=== PATIENT | female | born 1960 | race Caucasian/White ===

== ENCOUNTER 2016-03-04 17:27 | Emergency (ER) | payer OTHER ==
--- NOTE | 2016-03-04 18:30 | ED ---
Chest Pain HPI - General Chief Complaint: Chest Pain Stated Complaint: CHEST PAIN Time Seen by Provider: 03/04/16 17:49 Source: patient Mode of arrival: wheelchair Limitations: no limitations - History of Present Illness Initial Comments: Patient is a 55-year-old female with history of angina on nitro and Imdur presenting with chest pain. Patient states around 5:00 she had substernal nonradiating chest pain. Patient states it lasted for a few seconds. Patient does not relate to food or exertion. Patient concerned about anxiety but was not in any arguments or stressful environment. 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 Patient denies history of diabetes, hypertension, hyperlipidemia. She does state her brother has a history of early heart disease. Patient denies tobacco abuse. Patient had recent workup at [facility] for vaginal issues for which she was given estrogen supplements. Patient denies starting these. Patient denies recent travel or trauma or surgery. Patient denies history of DVT/PE. Patient denies known cancer. Patient denies hemoptysis. - Related Data Home Medications Medication Instructions Recorded Confirmed Aspirin EC [Ecotrin Low Dose] 81 mg PO DAILY 03/04/16 03/04/16 Isosorbide Mononitrate ER [Imdur] 15 mg PO DAILY 03/04/16 03/04/16 Levothyroxine Sodium [Synthroid] 50 mcg PO DAILY 03/04/16 03/04/16 Allergies Allergy/AdvReac Type Severity Reaction Status Date / Time clarithromycin [From Biaxin] AdvReac Nausea Verified 03/04/16 18:01 Review of Systems ROS Statement: Those systems with pertinent positive or pertinent negative responses have been documented in the HPI. Constitutional: No fever and no chills. HENT: No congestion, no rhinorrhea and no sore throat. Eyes: No discharge and no redness. Respiratory: No cough and no shortness of breath. Cardiovascular: +chest pain and no palpitations. Gastrointestinal: No nausea, no vomiting, no abdominal pain and no diarrhea. Genitourinary: No dysuria and no hematuria. Musculoskeletal: No back pain and no arthralgias. Skin: No pallor and no rash. Neurological: No dizziness and No headaches. ROS Other: All systems not noted in ROS Statement are negative. EKG Findings - EKG Comments: EKG Findings:: EKG done at 1839 shows a ventricular rate of 82 bpm, normal sinus rhythm. TX interval 132 ms, QRS duration 84 ms, QTC [address] or T- wave changes. Past Medical History Additional Past Medical History / Comment(s): Changes on stress test Past Surgical History: No Surgical Hx Reported Past Psychological History: No Psychological Hx Reported Smoking Status: Former smoker Past Alcohol Use History: None Reported Past Drug Use History: None Reported General Exam - General Exam Comments Initial Comments: Constitutional: Patient appears well-developed and well-nourished. No distress. Head: Normocephalic and atraumatic. Eyes: Conjunctivae and EOM are normal. Right eye exhibits no discharge. Left eye exhibits no discharge. No scleral icterus. Neck: Normal range of motion. Neck supple. Cardiovascular: Normal rate and regular rhythm. No murmur heard. Pulmonary/Chest: Effort normal and breath sounds normal. No respiratory distress. No wheezes. Abdominal: Soft. No distension. There is no tenderness. There is no rebound and no guarding. Musculoskeletal: Normal range of motion. No edema or tenderness. Neurological: Patient alert and oriented to person, place, and time. Skin: Skin is warm and dry. Not diaphoretic. Nursing notes and vitals reviewed. Limitations: no limitations Course Vital Signs 03/04/16 03/04/16 03/04/16 17:42 19:19 20:00 Temperature 96.9 F L 97.3 F L 97.5 F L Pulse Rate 89 76 68 Respiratory 18 20 20 Rate Blood Pressure 164/85 128/78 114/71 O2 Sat by Pulse 100 98 99 Oximetry - Reevaluation(s) Reevaluation #1: 03/04/16 22:24 Patient feeling better. No further chest pain. Patient has a vessel engineer she can follow up with tomorrow. Chest [facility] Patient is a 55-year-old female past medical history of angina presenting with chest pain. Chest pain was short-lived. Nonradiating chest pain. Patient with unremarkable CBC, d-dimer, troponin, BMP. UA unremarkable. Chest x-ray unremarkable. EKG unremarkable. There was an incidental 1 cm opacity in the right mid lung. This was disclosed the patient for follow-up. Heart score of 2. Prior to discharge, patient was resting comfortably in bed. Course of stay improved. Denies pain. Discussed physical exam and diagnostic tests with patient. Questions answered and patient is agreeable to discharge with close follow up with Primary Care Physician. Instructed to return to Emergency Department if symptoms worsen. Disposition Clinical Impression: Chest pain Disposition: HOME SELF-CARE Condition: Good Instructions: Chest Pain (ED) Referrals: Ritika Garcia MD [Primary Care Provider] - 1-2 days Zoltan Coulter MD [STAFF PHYSICIAN] - 1-2 days
[2016-03-04 18:52] LABS: Appearance,Urine Clear (Clear); Bilirubin,Urine Negative (Negative); Glucose,Urine (UA) Negative (Negative); Ketones,Urine Negative (Negative); Leukocyte Esterase,Urine Negative (Negative); Nitrite,Urine Negative (Negative); PH, Urine 6.5 (5.0-8.0); Protein,Urine Negative (Negative); Specific Gravity,Urine 1.001 (1.001-1.035); UA Billing (MACRO vs. MICRO) CHEM; Urobilinogen,Urine <2.0 mg/dL (<2.0)
[2016-03-04 19:20] VITALS: RESP 20
--- NOTE | 2016-03-04 19:42 | XR ---
EXAMINATION TYPE: XR chest 2V DATE OF EXAM: 03/04/2016 7:25 PM COMPARISON: NONE HISTORY: Chart substernal chest pain. No prior studies. TECHNIQUE: Frontal and lateral views of the chest are obtained. FINDINGS: The lungs are predominantly clear and well expanded. The pleural spaces are negative. The cardiac and mediastinal silhouette are negative. Bones and soft tissues are unremarkable. Incidental: However, there is a 1 cm opacity superimposed over the right mid-lower lung zone on the f rontal radiograph. IMPRESSION: 1. NO ACUTE PROCESS. 2. Incidental 1 cm opacity demonstrated over the right midlung. If there are no outside radiographs t o assure stability over time, then would recommend one-month follow-up chest CT characterization.
[2016-03-04 21:20] LABS: Basophils % (A) 1 %; CH 30.2; CHCM 33.5; Eosinophils # (A) 0.1 k/uL (0-0.7); Eosinophils % (A) 2 %; HCT 37.1 % (34.0-46.0); HDW 2.53; HGB 12.4 gm/dL (11.4-16.0); Luc # (Auto) 0.05; Luc % (Auto) 1; Lymphocytes # (A) 1.2 k/uL (1.0-4.8); Lymphocytes % (A) 30 %; MCH 30.3 pg (25.0-35.0); MCHC 33.4 g/dL (31.0-37.0); MCV 90.6 fL (80.0-100.0); Mean Platelet Volume 8.5; Monocytes # (A) 0.3 k/uL (0-1.0); Monocytes % (A) 7 %; Neutrophils # (A) 2.2 k/uL (1.3-7.7); Neutrophils % (A) 58 %; RBC 4.09 m/uL (3.80-5.40); RDW 12.8 % (11.5-15.5); WBC 3.8 k/uL (3.8-10.6); WBC (Perox) 4.08
[2016-03-04 21:26] LABS: Anion Gap 11 mmol/L; Blood Urea Nitrogen 9 mg/dL (7-17); Calcium 9.1 mg/dL (8.4-10.2); Carbon Dioxide 24 mmol/L (22-30); Chloride 106 mmol/L (98-107); Glucose 93 mg/dL (74-99); Non-African American GFR(MDRD) >60 (>60 ml/min/1.73 sqM); Potassium 4.4 mmol/L (3.5-5.1); Sodium 141 mmol/L (137-145)
[2016-03-04 21:37] LABS: INR 0.9 (<1.1); Partial Thromboplastin Time 24.1 sec (22.0-30.0); Prothrombin Time 9.7 sec (9.0-12.0)
[2016-03-04 23:00] VITALS: BP 101/60; PULSE 74; TEMP 97.2
== END 2016-03-04 22:53 | disposition home or self-care (01) ==
LOC: EC 17:27
DX: R07.9 Chest pain, unspecified (principal); Z79.82 Long term (current) use of aspirin; Z79.899 Other long term (current) drug therapy; Z88.1 Allergy status to other antibiotic agents; Z87.891 Personal history of nicotine dependence; I20.9 Angina pectoris, unspecified
CPT/HCPCS: 36415; 71020; 80048; 81003; 83735; 84484; 85025; 85379; 85610; 85730; 93005; 99285

== ENCOUNTER → 2016-06-03 | Outpatient (CLI) | payer OTHER ==
--- NOTE | 2016-06-03 22:56 | CT ---
EXAMINATION TYPE: CT chest w con DATE OF EXAM: 06/03/2016 2:28 PM COMPARISON: NONE HISTORY: Nonspecific abnormal findings of lung field CT DLP: 493 mGycm, Automated exposure control for dose reduction was used. CONTRAST: Performed injected with 100 ml mL of Omnipaque 300. TECHNIQUE: Axial images were obtained at 5 mm thick sections. Reconstructed images are reviewed on [employer] computer in the coronal plane. FINDINGS: Portion of the thyroid visualized is normal. There is a 0.7 cm nodule in the posterior medial right upper lung field. Series 4 image 14. This coul d be a granuloma with a small calcification centrally. There is a 0.6 and 0.8 cm nodule within the pe riphery of the right midlung. Series 4 image 31. These may have tiny adjacent daughter nodules. There is a 0.7 cm nodule within the right middle lobe. Series 4 image 33. 0.4 similar nodules in the perip zeenat of the right middle lobe. Series 4 image 36. There is a 0.6 cm nodule within the posterior media l right lung base. Series 4 image 46. No enlarged mediastinal or hilar adenopathy is evident. The ascending aorta diameter at the level o f the main pulmonary artery is 4.1 cm. The main pulmonary artery diameter at the bifurcation is 2.8 cm. Coronary artery calcification is present Limited CT sections are obtained through the upper abdomen. There is a 2.7 cm hypodensity with slight ly irregular margins within the medial left lobe liver. This is not a typical cyst. Additional workup is recommended. Solid lesion measuring 54 Hounsfield units should be considered. Hemangioma consider ed less likely given lack of sufficient enhancement. IMPRESSIONS: 1. Scattered nodules within the right lung are nonspecific. Granuloma metastatic disease within the d ifferential. 2 suspicious solid-appearing area within the left lobe liver. Additional workup is recom mended. Ultrasound can be performed.
== END | disposition home or self-care (01) ==
LOC: RADCTMAIN 13:29
PROVIDERS: ATTEND Family Medicine
DX: R91.8 Other nonspecific abnormal finding of lung field (principal)
CPT/HCPCS: 71260; Q9967

== ENCOUNTER → 2016-06-22 | Outpatient (CLI) | payer OTHER ==
--- NOTE | 2016-06-22 09:50 | US ---
EXAMINATION TYPE: US abdomen complete DATE OF EXAM: 06/22/2016 8:04 AM COMPARISON: CT chest 06/03/2016 CLINICAL HISTORY: D13.4 Neoplasm of Liver. Left lobe liver lesion noted on recent CT, acid reflux EXAM MEASUREMENTS: Liver Length: 17.0 cm Gallbladder Wall: 0.3 cm CBD: 0.4 cm Spleen: 12.2 cm Right Kidney: 10.1 x 3.6 x 3.7 cm Left Kidney: 10.4 x 5.1 x 4.7 cm Pancreas: Tail portions obscured by overlying bowel content Liver: hyperechoic areas noted, largest within left lobe = 3.4 x 2.6 x 3.4cm Gallbladder: no evidence of stones. There is mild wall thickening. Evidence for sonographic Diamond's sign: no CBD: wnl Spleen: wnl Right Kidney: no evidence of hydronephrosis or mass Left Kidney: no evidence of hydronephrosis or mass Upper IVC: wnl Abd Aorta: visualized portions appear wnl, bifurcation obscured IMPRESSION: 1. Scattered hyperechoic areas within the liver. These appear greater than expected from the CT judson rison. The largest within the left lobe liver measuring approximately 3 cm in size. No neoplasm shoul d be considered. Additional workup with contrast MRI is recommended.
== END | disposition home or self-care (01) ==
LOC: RADUSWWP 07:25
PROVIDERS: ATTEND Family Medicine
DX: R93.2 Abnormal findings on diagnostic imaging of liver and biliary tract (principal); D13.4 Benign neoplasm of liver
CPT/HCPCS: 76700

== ENCOUNTER → 2016-08-07 | Outpatient (CLI) | payer OTHER ==
--- NOTE | 2016-08-08 10:01 | PE ---
EXAMINATION TYPE: PET CT fusion skull to thigh DATE OF EXAM: 08/07/2016 COMPARISON: CT chest 06/03/2016 Prior PET/CT: None HISTORY: Solitary pulmonary nodule TECHNIQUE: Following the intravenous administration of 10.45 mCi of F-18 FDG, whole body images are performed from the skull base to the midthigh. Images are reviewed on the computer in the coronal, a xial, and sagittal planes. Reconstructed rotating images are created on independent workstation and reviewed on the computer. A localization and attenuation correction CT is performed in conjunction with the PET scan. DLP: 399.58 mGycm SCAN: Initial Blood glucose: 101 mg/dL Average Mediastinum SUV: 1.74 Average Liver SUV: 2.56 FINDINGS: NECK: No abnormal uptake. THORAX: There is vague nonspecific uptake within an area of pneumonitis in the right apex. This has a n SUV of 1.35 which can be inflammatory in nature. PET image 79. A right lower lobe nodule has low SPRAGUE V value of 0.86. PET image 97 nodular uptake within the posterior lateral right upper lung field has an SUV value 1.1 and 0.98. PET images 89-90. A suspected calcification in the posterior medial right apex has an SUV value of 0.91. PET image 69. A medial right middle lobe nodule near the ascending tho racic aorta on PET image 81 has an SUV value 1. There is mild increased uptake within the right suprahilar region. This has an SUV value of 2.9, PET image 82. Slightly more inferior subcarinal region uptake is 2.86. This can be within the inflammator y range but is approaching a possible neoplastic process such as metastatic disease. ABDOMEN: No abnormal uptake PELVIS: No abnormal uptake OSSEOUS STRUCTURES: No abnormal uptake LOCALIZATION CT: The ascending thoracic aorta at the level of main pulmonary artery is 4.3 cm patent main pulmonary bifurcation is 2.5 cm. Right lung nodules are again identified on the localization CT. COMPARISON: Nodules appear stable from the May 2016 comparison IMPRESSION: 1. Suspicious uptake within the identified lung nodules not identified. These are at the lower end of detectability, early minimal prostatic disease is not excluded. Findings appear more compatible with inflammatory change. 2. There is some mild increased uptake within nonenlarged right suprahilar lymph nodes. Inflammatory change and early metastatic disease are within the differential. These should be followed with PET/CT .
== END | disposition home or self-care (01) ==
LOC: RADPETMAIN 10:25
PROVIDERS: ATTEND Internal Medicine Critical Care Medicine
DX: R91.8 Other nonspecific abnormal finding of lung field (principal)
CPT/HCPCS: 78815; A9552

== ENCOUNTER → 2017-02-02 | Outpatient (CLI) | payer OTHER ==
--- NOTE | 2017-02-02 14:03 | CT ---
EXAMINATION TYPE: CT chest w con DATE OF EXAM: 02/02/2017 COMPARISON: CT chest June 03, 2016. PET CT August 07, 2016 HISTORY: Follow up study for known lung nodules. CT DLP: 170.6 mGycm. Automated Exposure Control for Dose Reduction was Utilized. TECHNIQUE: CT scan of the thorax is performed following with IV Contrast, patient injected with 100 mL of Omnipaque 300. FINDINGS: LUNGS: There is stable calcified posterior 4 mm right upper lung nodule axial image 15. Posterior lat eral right lower lobe nodules is some calcification and fat density are redemonstrated. More anterior nodule measures 7 x 7 mm on axial image 30. More posterior nodule measures 10 x 8 mm on axial image 31. There are stable or perhaps minimally larger versus prior CT accounting for technical differences . Right middle lobe nodular density measures 7 x 5 mm current study image 34 not significantly change d from prior. A 6 x 2 mm subpleural scarlike opacity right middle lobe on axial image 38 is stable. A 8 x 7 mm nodule with calcification right lung base on axial image 47 and felt stable. No new or left-sided nodularity is identified. No pleural effusion or pneumothorax is seen bilaterall y. No suspicious groundglass opacity or consolidation is present. MEDIASTINUM: There are no greater than 1 cm hilar or mediastinal lymph nodes. Prominent but subcenti meter right hilar lymph nodes near image 31 that show hypermetabolic uptake are stable. No pericardi al effusion is seen. Ascending aorta measures 4.0 cm in diameter unchanged from prior. There is mode rate to severe coronary artery calcific patient redemonstrated which is noted marker for coronary art brett disease. OTHER: There is nonspecific 2.3 cm low dense lesion left hepatic lobe on axial image 50 felt stable. This correlates with hyperechoic area on ultrasound favoring hemangioma. This can be confirmed with [facility] liver protocol CT or MRI if desired. IMPRESSION: Scattered right lung nodules overall stable or perhaps minimally progressed in size. Advi sed continued CT follow-up in 6 months time to reassess.
== END | disposition home or self-care (01) ==
LOC: RADCTMAIN 13:20
PROVIDERS: ATTEND Internal Medicine Critical Care Medicine
DX: R91.8 Other nonspecific abnormal finding of lung field (principal); Z88.1 Allergy status to other antibiotic agents; Z88.8 Allergy status to other drugs, medicaments and biological substances
CPT/HCPCS: 71260; Q9967

== ENCOUNTER 2017-07-02 19:14 | Emergency (ER) | payer BC, OTHER ==
[2017-07-02] MEDS ORDERED: SODIUM CHLORIDE 0.9% 1,000 ML IV STA ×2 (19:38)
[2017-07-02] MEDS ORDERED: LORazepam 2 MG/ML INJ IV STA (19:38)
--- NOTE | 2017-07-02 19:50 | ED ---
Arrhythmia/Palpitations HPI - General Chief Complaint: Arrhythmia/Palpitations Stated Complaint: Light headed Time Seen by Provider: 07/02/17 19:20 Source: patient Mode of arrival: ambulatory Limitations: no limitations - History of Present Illness Initial Comments: This 56-year-old white female presents with a complaint of some palpitations. She states that she was doing a significant amount of physical yardwork today. It was very hot outside as well. She is not used to this degree of physical labor. She did not eat anything throughout the day and had little to drink. Towards the end of the day she apparently started having the palpitations. She denies any chest pain or shortness of breath. She apparently had similar symptoms several years ago and was seen in the emergency department and diagnosed with an anxiety attack. She does not normally take medications for anxiety. She denies any other complaints or modifying factors. The palpitations have resolved at this point in time. - Related Data Home Medications Medication Instructions Recorded Confirmed Aspirin EC [Ecotrin Low Dose] 81 mg PO DAILY 03/04/16 07/02/17 Isosorbide Mononitrate ER [Imdur] 15 mg PO DAILY 03/04/16 07/02/17 Levothyroxine Sodium [Synthroid] 75 mcg PO DAILY 03/04/16 07/02/17 Allergies Allergy/AdvReac Type Severity Reaction Status Date / Time clarithromycin [From Biaxin] AdvReac Nausea Verified 07/02/17 19:19 Review of Systems ROS Statement: Those systems with pertinent positive or pertinent negative responses have been documented in the HPI. ROS Other: All systems not noted in ROS Statement are negative. Past Medical History Past Medical History: Thyroid Disorder Additional Past Medical History / Comment(s): Changes on stress test History of Any Multi-Drug Resistant Organisms: None Reported Past Surgical History: No Surgical Hx Reported Past Psychological History: No Psychological Hx Reported Smoking Status: Former smoker Past Alcohol Use History: None Reported Past Drug Use History: None Reported General Exam - General Exam Comments Initial Comments: GENERAL: The patient is well nourished and well hydrated. VITAL SIGNS: Heart rate, blood pressure, respiratory rate reviewed as recorded in nurse's notes. EYES: Pupils are round and reactive. Extraocular movements are intact. No conjunctival / lid redness or swelling. ENT: No external evidence of injury, swelling, or ecchymosis. Airway is patent. Throat is clear. NECK: Nontender. No swelling or evidence of injury. No subcutaneous emphysema. Trachea is midline. No thyroid mass. HEART: Regular rate and rhythm. Good peripheral pulses. LUNGS/CHEST: Breath sounds clear and equal bilaterally. No rales, rhonchi, or wheezes. No ecchymosis, subcutaneous emphysema, or tenderness. ABDOMEN: Abdomen soft without tenderness. No palpable masses or organomegaly. No peritoneal signs. No abdominal wall swelling or ecchymosis. EXTREMITIES: No extremity tenderness. Normal muscle tone and function. No thoracolumbar tenderness. NEUROLOGIC: Sensation is grossly intact. Cranial nerve exam reveals face is symmetrical, tongue is midline, speech is clear. SKIN: No abrasions or ecchymosis is noted. No induration or masses noted. PSYCHIATRIC: Alert and oriented. Appropriate behavior and judgment. Limitations: no limitations Course Vital Signs 07/02/17 07/02/17 19:15 19:20 Temperature 98.3 F Pulse Rate 107 H Pulse Rate [ 79 Licensed Prosthetist/Orthotist ] Respiratory 20 Rate Blood Pressure 169/86 O2 Sat by Pulse 100 Oximetry Medical Decision Making - Medical Decision Making The patient was seen and examined. All diagnostics are reviewed. An IV is started and she is hydrated. She also had an EKG done which shows a normal sinus rhythm at a rate of 89. There is no acute ST-T wave changes identified. The NV intervals 138, QRS duration is 80, and the QTC intervals 452. I was going to give her some Ativan intravenously but she refused as she does not like taking medicine and has seen people have problems with Ativan. Labs are reviewed and does show slight elevation of the TSH and decrease of the CO2. Is felt as though she does have some moderate dehydration. She had a negative chest x-ray. She is feeling significantly improved on recheck. No further palpitations are noted. His felt as though her symptoms likely could be related to a degree of dehydration, some underlying anxiety, and overworked/ exhaustion in hot climates. She also had not eaten or drank much today. It is felt, at this time, that she is stable for discharge and leaves in no significant distress. - Lab Data Result diagrams: 07/02/17 20:15 07/02/17 20:15 Lab Results 07/02/17 07/02/17 07/02/17 Range/Units 20:15 20:15 20:15 WBC 4.7 (3.8-10.6) k/uL RBC 4.40 (3.80-5.40) m/uL Hgb 12.9 (11.4-16.0) gm/dL Hct 38.3 (34.0-46.0) % MCV 87.0 (80.0-100.0) fL MCH 29.4 (25.0-35.0) pg MCHC 33.8 (31.0-37.0) g/dL RDW 13.0 (11.5-15.5) % Plt Count 271 (150-450) k/uL Neutrophils % 62 % Lymphocytes % 28 % Monocytes % 6 % Eosinophils % 3 % Basophils % 1 % Neutrophils # 2.9 (1.3-7.7) k/uL Lymphocytes # 1.3 (1.0-4.8) k/uL Monocytes # 0.3 (0-1.0) k/uL Eosinophils # 0.1 (0-0.7) k/uL Basophils # 0.0 (0-0.2) k/uL Sodium 139 (137-145) mmol/L Potassium 4.2 (3.5-5.1) mmol/L Chloride 104 (98-107) mmol/L Carbon Dioxide 21 L (22-30) mmol/L Anion Gap 14 mmol/L BUN 15 (7-17) mg/dL Creatinine 0.75 (0.52-1.04) mg/dL Est GFR (CKD-EPI)AfAm >90 (>60 ml/min/1.73 sqM) Est GFR (CKD-EPI)NonAf >90 (>60 ml/min/1.73 sqM) Glucose 75 (74-99) mg/dL Calcium 9.6 (8.4-10.2) mg/dL Total Creatine Kinase 191 H (30-135) U/L CK-MB (CK-2) 1.8 (0.0-2.4) ng/mL CK-MB (CK-2) Rel Index 0.9 Troponin I <0.012 (0.000-0.034) ng/mL TSH 4.730 H (0.465-4.680) mIU/L Disposition Clinical Impression: Palpitations, Hypertension, Dehydration Disposition: HOME SELF-CARE Condition: Good Instructions: Palpitations (ED), Dehydration (ED) Is patient prescribed a controlled substance at d/c from ED?: No Referrals: Ritika Garcia MD [Primary Care Provider] - 07/05/17 Time of Disposition: 21:42
--- NOTE | 2017-07-02 20:15 | XR ---
EXAMINATION TYPE: XR chest 2V DATE OF EXAM: 07/02/2017 COMPARISON: 03/04/2016 HISTORY: Chest pain TECHNIQUE: Frontal and lateral views of the chest are obtained. FINDINGS: There is no focal air space opacity, pleural effusion, or pneumothorax seen. The cardiac silhouette size is within normal limits. The osseous structures are intact. IMPRESSION: No acute cardiopulmonary process.
[2017-07-02 20:39] LABS: Basophils % (A) 1 %; Eosinophils # (A) 0.1 k/uL (0-0.7); Eosinophils % (A) 3 %; HCT 38.3 % (34.0-46.0); HGB 12.9 gm/dL (11.4-16.0); Lymphocytes # (A) 1.3 k/uL (1.0-4.8); Lymphocytes % (A) 28 %; MCH 29.4 pg (25.0-35.0); MCHC 33.8 g/dL (31.0-37.0); Mean Platelet Volume 7.2; Monocytes # (A) 0.3 k/uL (0-1.0); Monocytes % (A) 6 %; Neutrophils # (A) 2.9 k/uL (1.3-7.7); Neutrophils % (A) 62 %; Platelet Count 271 k/uL (150-450); WBC 4.7 k/uL (3.8-10.6)
[2017-07-02 20:47] LABS: Anion Gap 14 mmol/L; Blood Urea Nitrogen 15 mg/dL (7-17); Calcium 9.6 mg/dL (8.4-10.2); Carbon Dioxide 21 mmol/L (22-30); Chloride 104 mmol/L (98-107); Glucose 75 mg/dL (74-99); Potassium 4.2 mmol/L (3.5-5.1); Sodium 139 mmol/L (137-145)
[2017-07-02 20:57] LABS: Creatine Kinase 191 U/L (30-135)
[2017-07-02 21:11] LABS: Creatine Kinase MB 1.8 ng/mL (0.0-2.4); Troponin I <0.012 ng/mL (0.000-0.034)
[2017-07-02 22:20] VITALS: BP 152/78; PULSE 76; RESP 16; TEMP 98.4
== END 2017-07-02 22:00 | disposition home or self-care (01) ==
LOC: EC 19:14
DX: R00.2 Palpitations (principal); I10 Essential (primary) hypertension; E86.0 Dehydration; E07.9 Disorder of thyroid, unspecified; Z88.1 Allergy status to other antibiotic agents; Z79.82 Long term (current) use of aspirin; Z79.899 Other long term (current) drug therapy; Z87.891 Personal history of nicotine dependence
CPT/HCPCS: 36415; 71046; 80048; 82550; 82553; 84443; 84484; 85025; 93005; 96360; 99285

== ENCOUNTER 2018-02-09 13:40 | Emergency (ER) | payer BC ==
[2018-02-09 13:45] VITALS: RESP 16; TEMP 97.8
--- NOTE | 2018-02-09 14:12 | ED ---
General Adult HPI - General Chief complaint: Chest Pain Stated complaint: Chest pain Time Seen by Provider: 02/09/18 13:45 Source: patient, RN notes reviewed Mode of arrival: ambulatory Limitations: no limitations - History of Present Illness Initial comments: This is a 57-year-old female with past medical history left ear for recent diagnosis of rheumatoid arthritis. Patient comes in today because she had 3 episodes of chest pain each lasting about 1 second sharp in nature of the left side of her chest she said it was a stabbing sensation that went away immediately but it happened on 3 different occasions. Patient states she's had this on and 2 other days over the last year and half and has been worked up for those and no one could find a cause. Patient denied any radiation of this pain. Patient denied any shortness of breath or difficulty breathing. Patient denied any diaphoretic episodes. Patient denied any nausea. Patient states currently she feels completely pain-free and symptom-free. Patient states she' s been very anxious and stressed lately because a lot of personal issues. Patient denies any recent fever chills or cough. Patient denies any calf pain or leg swelling. Patient denies abdominal pain patient denies nausea vomiting diarrhea. Patient denies lightheadedness dizziness or near syncopal episode. - Related Data Home Medications Medication Instructions Recorded Confirmed Aspirin EC [Ecotrin Low Dose] 81 mg PO DAILY 03/04/16 02/09/18 Levothyroxine Sodium [Synthroid] 88 mcg PO DAILY 02/09/18 02/09/18 Nabumetone [Relafen] 500 mg PO BID 02/09/18 02/09/18 Allergies Allergy/AdvReac Type Severity Reaction Status Date / Time clarithromycin [From Biaxin] AdvReac Nausea Verified 02/09/18 14:20 Review of Systems ROS Statement: Those systems with pertinent positive or pertinent negative responses have been documented in the HPI. ROS Other: All systems not noted in ROS Statement are negative. Past Medical History Past Medical History: Thyroid Disorder Additional Past Medical History / Comment(s): Changes on stress test History of Any Multi-Drug Resistant Organisms: None Reported Past Surgical History: No Surgical Hx Reported Past Psychological History: No Psychological Hx Reported Smoking Status: Former smoker Past Alcohol Use History: None Reported Past Drug Use History: None Reported General Exam - General Exam Comments Initial Comments: GENERAL: Patient is well-developed and well-nourished. Patient is nontoxic and well- hydrated and is in no acute distress. Patient does appear mildly anxious. ENT: Neck is soft and supple. No significant lymphadenopathy is noted. Oropharynx is clear. Moist mucous membranes. Neck has full range of motion without eliciting any pain. EYES: The sclera were anicteric and conjunctiva were pink and moist. Extraocular movements were intact and pupils were equal round and reactive to light. Eyelids were unremarkable. PULMONARY: Unlabored respirations. Good breath sounds bilaterally. No audible rales rhonchi or wheezing was noted. CARDIOVASCULAR: There is a regular rate and rhythm without any murmurs gallops or rubs. ABDOMEN: Soft and nontender with normal bowel sounds. No palpable organomegaly was noted. There is no palpable pulsatile mass. SKIN: Skin is clear with no lesions or rashes and otherwise unremarkable. NEUROLOGIC: Patient is alert and oriented x3. Cranial nerves II through XII are grossly intact. Motor and sensory are also intact. Normal speech, volume and content. Symmetrical smile. MUSCULOSKELETAL: Normal extremities with adequate strength and full range of motion. No lower extremity swelling or edema. No calf tenderness. LYMPHATICS: No significant lymphadenopathy is noted PSYCHIATRIC: Normal psychiatric evaluation. However the patient does seem mildly anxious. Limitations: no limitations Course Vital Signs 02/09/18 02/09/18 13:42 16:38 Temperature 97.8 F Pulse Rate 80 75 Respiratory 16 16 Rate Blood Pressure 162/89 145/86 O2 Sat by Pulse 98 100 Oximetry Medical Decision Making - Medical Decision Making EKG shows normal sinus rhythm at 76 bpm [place] interval is 136 QRS is 84 QT interval 412 QTC is 463. Patient's EKG shows no ST segment elevation or depression or T wave abnormalities are noted. Patient did not express any chest pain throughout the ED course. Chest x-ray shows no acute abnormality Patient will follow-up with a primary medical care doctor. - Lab Data Result diagrams: 02/09/18 15:44 02/09/18 15:44 Lab Results 02/09/18 02/09/18 02/09/18 Range/Units 15:44 15:44 15:44 WBC 4.1 (3.8-10.6) k/uL RBC 4.68 (3.80-5.40) m/uL Hgb 13.3 (11.4-16.0) gm/dL Hct 41.1 (34.0-46.0) % MCV 87.9 (80.0-100.0) fL MCH 28.4 (25.0-35.0) pg MCHC 32.3 (31.0-37.0) g/dL RDW 13.3 (11.5-15.5) % Plt Count 225 (150-450) k/uL Neutrophils % 62 % Lymphocytes % 29 % Monocytes % 4 % Eosinophils % 2 % Basophils % 1 % Neutrophils # 2.6 (1.3-7.7) k/uL Lymphocytes # 1.2 (1.0-4.8) k/uL Monocytes # 0.2 (0-1.0) k/uL Eosinophils # 0.1 (0-0.7) k/uL Basophils # 0.1 (0-0.2) k/uL PT 9.8 (9.0-12.0) sec INR 0.9 (<1.2) APTT 23.7 (22.0-30.0) sec D-Dimer 0.32 (<0.60) mg/L FEU Sodium 140 (137-145) mmol/L Potassium 4.7 (3.5-5.1) mmol/L Chloride 107 (98-107) mmol/L Carbon Dioxide 24 (22-30) mmol/L Anion Gap 9 mmol/L BUN 15 (7-17) mg/dL Creatinine 0.76 (0.52-1.04) mg/dL Est GFR (CKD-EPI)AfAm >90 (>60 ml/min/1.73 sqM) Est GFR (CKD-EPI)NonAf 89 (>60 ml/min/1.73 sqM) Glucose 89 (74-99) mg/dL Calcium 9.6 (8.4-10.2) mg/dL Magnesium 2.1 (1.6-2.3) mg/dL Total Bilirubin 0.6 (0.2-1.3) mg/dL AST 29 (14-36) U/L ALT 27 (9-52) U/L Alkaline Phosphatase 67 (38-126) U/L Total Creatine Kinase (30-135) U/L CK-MB (CK-2) (0.0-2.4) ng/mL CK-MB (CK-2) Rel Index Troponin I (0.000-0.034) ng/mL Total Protein 7.9 (6.3-8.2) g/dL Albumin 4.5 (3.5-5.0) g/dL 02/09/18 Range/Units 15:44 WBC (3.8-10.6) k/uL RBC (3.80-5.40) m/uL Hgb (11.4-16.0) gm/dL Hct (34.0-46.0) % MCV (80.0-100.0) fL MCH (25.0-35.0) pg MCHC (31.0-37.0) g/dL RDW (11.5-15.5) % Plt Count (150-450) k/uL Neutrophils % % Lymphocytes % % Monocytes % % Eosinophils % % Basophils % % Neutrophils # (1.3-7.7) k/uL Lymphocytes # (1.0-4.8) k/uL Monocytes # (0-1.0) k/uL Eosinophils # (0-0.7) k/uL Basophils # (0-0.2) k/uL PT (9.0-12.0) sec INR (<1.2) APTT (22.0-30.0) sec D-Dimer (<0.60) mg/L FEU Sodium (137-145) mmol/L Potassium (3.5-5.1) mmol/L Chloride (98-107) mmol/L Carbon Dioxide (22-30) mmol/L Anion Gap mmol/L BUN (7-17) mg/dL Creatinine (0.52-1.04) mg/dL Est GFR (CKD-EPI)AfAm (>60 ml/min/1.73 sqM) Est GFR (CKD-EPI)NonAf (>60 ml/min/1.73 sqM) Glucose (74-99) mg/dL Calcium (8.4-10.2) mg/dL Magnesium (1.6-2.3) mg/dL Total Bilirubin (0.2-1.3) mg/dL AST (14-36) U/L ALT (9-52) U/L Alkaline Phosphatase (38-126) U/L Total Creatine Kinase 142 H (30-135) U/L CK-MB (CK-2) 2.0 (0.0-2.4) ng/mL CK-MB (CK-2) Rel Index 1.4 Troponin I <0.012 (0.000-0.034) ng/mL Total Protein (6.3-8.2) g/dL Albumin (3.5-5.0) g/dL Disposition Clinical Impression: Atypical chest pain Disposition: HOME SELF-CARE Instructions: Chest Pain (ED) Is patient prescribed a controlled substance at d/c from ED?: No Referrals: Ritika Garcia MD [Primary Care Provider] - 1-2 days Time of Disposition: 17:06
--- NOTE | 2018-02-09 16:21 | XR ---
EXAMINATION TYPE: XR chest 2V DATE OF EXAM: 02/09/2018 COMPARISON: 07/03/1979 HISTORY: Shortness of breath TECHNIQUE: Frontal and lateral views of the chest are obtained. FINDINGS: Scattered senescent parenchymal changes noted. Hyperinflation compatible with COPD. No evidence for infiltrate. No evidence for atelectasis. Heart size is stable. Mediastinal structures are stable and grossly unremarkable. No evidence for hilar prominence. Degenerative changes dorsal spine. IMPRESSION: 1. No evidence for acute pulmonary disease.
[2018-02-09 16:29] LABS: Basophils # (A) 0.1 k/uL (0-0.2); Basophils % (A) 1 %; Eosinophils # (A) 0.1 k/uL (0-0.7); Eosinophils % (A) 2 %; HCT 41.1 % (34.0-46.0); HGB 13.3 gm/dL (11.4-16.0); Lymphocytes # (A) 1.2 k/uL (1.0-4.8); Lymphocytes % (A) 29 %; MCH 28.4 pg (25.0-35.0); MCHC 32.3 g/dL (31.0-37.0); MCV 87.9 fL (80.0-100.0); Monocytes # (A) 0.2 k/uL (0-1.0); Monocytes % (A) 4 %; Neutrophils # (A) 2.6 k/uL (1.3-7.7); Neutrophils % (A) 62 %; Platelet Count 225 k/uL (150-450); RBC 4.68 m/uL (3.80-5.40); RDW 13.3 % (11.5-15.5); WBC 4.1 k/uL (3.8-10.6)
[2018-02-09 16:39] VITALS: BP 145/86; PULSE 75
[2018-02-09 16:51] LABS: ALT 27 U/L (9-52); AST 29 U/L (14-36); Albumin 4.5 g/dL (3.5-5.0); Alkaline Phosphatase 67 U/L (38-126); Anion Gap 9 mmol/L; Blood Urea Nitrogen 15 mg/dL (7-17); Calcium 9.6 mg/dL (8.4-10.2); Carbon Dioxide 24 mmol/L (22-30); Chloride 107 mmol/L (98-107); Creatine Kinase 142 U/L (30-135); Glucose 89 mg/dL (74-99); Magnesium 2.1 mg/dL (1.6-2.3); Potassium 4.7 mmol/L (3.5-5.1); Sodium 140 mmol/L (137-145); Total Bilirubin 0.6 mg/dL (0.2-1.3); Total Protein 7.9 g/dL (6.3-8.2)
[2018-02-09 16:57] LABS: D-Dimer 0.32 mg/L FEU (<0.60); INR 0.9 (<1.2); Partial Thromboplastin Time 23.7 sec (22.0-30.0); Prothrombin Time 9.8 sec (9.0-12.0)
[2018-02-09 17:03] LABS: Troponin I <0.012 ng/mL (0.000-0.034)
== END 2018-02-09 17:14 | disposition home or self-care (01) ==
LOC: EC 13:40
DX: R07.89 Other chest pain (principal); F43.9 Reaction to severe stress, unspecified; E07.9 Disorder of thyroid, unspecified; M06.9 Rheumatoid arthritis, unspecified; Z87.891 Personal history of nicotine dependence; Z79.82 Long term (current) use of aspirin; Z79.1 Long term (current) use of non-steroidal anti-inflammatories (NSAID); Z79.899 Other long term (current) drug therapy; Z88.1 Allergy status to other antibiotic agents
CPT/HCPCS: 36415; 71046; 80053; 82550; 82553; 83735; 84484; 85025; 85379; 85610; 85730; 93005; 99285

== ENCOUNTER 2018-03-31 08:28 | Observation (INO) | payer BC ==
--- NOTE | 2018-03-31 11:00 | CT ---
EXAMINATION TYPE: CT chest w con DATE OF EXAM: 03/31/2018 COMPARISON: 02/02/2017 and PET/CT dated 08/07/2016 HISTORY: Lung Mass CT DLP: 162.4 mGycm. Automated Exposure Control for Dose Reduction was Utilized. TECHNIQUE: CT scan of the thorax is performed following with IV Contrast, patient injected with 100 mL of Isovue 300. FINDINGS: LUNGS: There is redemonstration of bilateral subcentimeter pulmonary nodules majority that demonstrat es central calcification. The right apical calcified pulmonary is unchanged dating back to 05/27/1716. There is slight increased conspicuity of the 5 x 4 mm anterior right upper lobe pulmonary nodule on series 4 image 22 in comparison the prior of 05/27/1716. The previously seen 6 mm right lower lobe pul monary nodule on series 4 image 31 has developed internal calcifications in comparison to the prior o f 06/03/2016 and minimally increased in size (within limitations of differences in slice selection and measurement error) now measuring 7 x 7 mm. The previously seen 7 mm more posterior pulmonary nodule on the prior of series 4 image 31 is again similar in size measuring approximately 6 x 6 mm. Internal calcifications also developed within this nodule. Right posterior basilar segment pulmonary nodule i s also unchanged in size measuring 6 mm on image 48. MEDIASTINUM: There are no greater than 1 cm hilar or mediastinal lymph nodes. Moderate coronary winnie ry calcifications are seen along the left anterior descending coronary artery. Ascending thoracic aor ta is mildly enlarged measuring 4.0 cm. No dissection is seen of the thoracic aorta. Mild atheromatou s plaquing is noted. Strand-like density in the anterior superior mediastinum likely relates to resid ual thymic tissue. No pericardial effusion is seen. OTHER: There is redemonstration of a left hepatic lesion measuring approximately 2.1 x 2.2 cm on seri es 3 image 52 that although measured larger on the exam of 05/27/1716 this may be related to phase of contrast. Definitive characterization with MR is recommended although this could represent a hemangio ma given the peripheral arterial nodularity on the exam of 06/03/2016 and hyperechoic nature on the ul trasound of 06/22/2016. IMPRESSION: 1. Pulmonary nodules are highly favored to be benign and likely sequela of granulomatous disease, rel atively unchanged from the prior of 05/27/1716. Follow-up CT in 12 months is recommended to ensure mal g-term stability. 2. Mild background centrilobular emphysematous change. 3. Left hepatic lesion that although is favored to represent a hemangioma definitive characterization with enhanced abdominal MR is recommended. 4. Minimally dilated ascending thoracic aorta measuring 4.0 cm.
[2018-03-31] MEDS ORDERED: NITROGLYCERIN SL TABS 0.4 MG TAB SUBLINGUAL PRN (11:04)
[2018-03-31] MEDS ORDERED: ATORVASTATIN 80 MG TAB PO STA (11:04)
[2018-03-31] MEDS ORDERED: ALPRAZolam 0.25 MG TAB PO PRN (11:04)
[2018-03-31] MEDS ORDERED: ALPRAZolam 0.5 MG TAB PO PRN (11:04)
[2018-03-31] MEDS ORDERED: SODIUM CHLORIDE 0.9% 1,000 ML in EMPTY BAG 1 BAG IV ONE (11:04)
[2018-03-31] MEDS ORDERED: ASPIRIN 325 MG TAB PO ONE (11:05)
--- NOTE | 2018-03-31 11:17 | P.CRDCN ---
History of Present Illness History of present illness: This is a pleasant 57 showed female past medical history significant for dyslipidemia, hypothyroidism, rheumatoid arthritis and former nicotine dependence. Chest is significant family history with her mother, father, brother and sisters all having premature coronary artery disease. He was sent in from her primary care physician Dr. Garcia for a stress echocardiogram secondary to intermittent symptoms of chest heaviness over the previous 2 months that seem to be worse with exertion. She states she also has been increasingly fatigued which is not normal for her. She gets chest discomfort in the left precordial region intermittently at times with no specific aggravating or alleviating factors. She denies associated shortness of breath, dizziness, nausea, vomiting, diaphoresis or palpitations. There is no radiation to the arm, back, neck or jaw. She underwent stress echocardiogram today which revealed baseline EKG with ST depression in the inferior leads. With exercise the ST depression became significantly worse in the inferior leads with 4-5mm depression that persisted into the recovery period. Echocardiogram images revealed evidence of wall motion hypokinesia and inferior basal region. He is images were reviewed with Dr. Ness and he recommends proceeding with cardiac catheterization. This has been discussed in great detail with the patient as well as her primary care physician Dr. Garcia. She had no symptoms of chest discomfort, shortness of breath, dizziness or palpitations throughout exercise portion of the stress test or thereafter. At the time of my exam: CONSTITUTIONAL: Denies fever. Denies chills. EYES: Denies blurred vision. Denies vision changes. Denies eye pain. EARS, NOSE, MOUTH & THROAT: Denies headache. Denies sore throat. Denies ear pain. CARDIOVASCULAR: Denies chest pain. Denies shortness of breath. Denies orthopnea. Denies PND. Denies palpitations. RESPIRATORY: Denies cough. GASTROINTESTINAL: Denies abdominal pain. Denies diarrhea. Denies constipation. Denies nausea. Denies vomiting. MUSCULOSKELETAL: Denies myalgias. INTEGUMENTARY: Denies pruitis. Denies rash. NEUROLOGIC: Denies numbness. Denies tingling. Denies weakness. PSYCHIATRIC: Denies anxiety. Denies depression. ENDOCRINE: Denies fatigue. Denies weight change. Denies polydipsia. Denies polyurina. GENITOURINARY: Denies burning, hematuria or urgency with micturation. HEMATOLOGIC: Denies history of anemia. Denies bleeding. Blood pressure prior to exercise was 152/97 with a heart rate of 82 GENERAL: This is a 57-year-old female in no apparent distress at the time of my examination. HEENT: Head is atraumatic, normocephalic. Pupils are equal, round. Sclerae anicteric. Conjunctivae are clear. Mucous membranes of the mouth are moist. Neck is supple. There is no jugular venous distention. No carotid bruit is heard. LUNGS: Clear to auscultation no wheezes, rales or rhonchi. No chest wall tenderness is noted on palpation or with deep breathing. HEART: Regular rate and rhythm without murmurs, rubs or gallops. S1 and S2 heard. ABDOMEN: Soft, nontender. Bowel sounds are heard. No organomegaly noted. EXTREMITIES: No evidence of peripheral edema and no calf tenderness noted. VASCULAR: Radial and dorsalis pedis pulses palpated, no evidence of clubbing. NEUROLOGIC: Patient is awake, alert and oriented x3. ASSESSMENT Unstable angina Significantly abnormal stress echocardiogram with evidence of inferior wall ischemia Dyslipidemia, currently not taking any oral medications Rheumatoid arthritis Former nicotine dependence PLAN Recommend placing the patient on observation unit to undergo cardiac catheterization this afternoon. I have discussed the risks, benefits and alternative therapies for the above-mentioned procedure and for both sedation/ analgesia as well as necessary blood product administration, if indicated, as they pertain to this patient. The patient has indicated understanding and acceptance of the risks and procedures discussed. Questions have been answered appropriately and she is agreeable to move forward with the above stated procedure. She will be placed on observation unit momentarily while we obtain labs and prep her for catheterization this afternoon. Obtain 2D echocardiogram and doppler study to assess cardiac structure and function. Check CBC w/diff, CMP and lipid panel. Give her an aspirin 325 mg and atorvastatin 80 mg x1 NOW and hydrate the patient for her procedure. Obtain 2 view chest xray. Further recommendations to follow based on clinical course. Nurse Practitioner note has been reviewed, I agree with a documented findings and plan of care. Patient was seen and examined. Past Medical History Past Medical History: Thyroid Disorder Additional Past Medical History / Comment(s): Changes on stress test History of Any Multi-Drug Resistant Organisms: None Reported Past Surgical History: No Surgical Hx Reported Past Psychological History: No Psychological Hx Reported Smoking Status: Former smoker Past Alcohol Use History: None Reported Past Drug Use History: None Reported Medications and Allergies Home Medications Medication Instructions Recorded Confirmed Type Aspirin EC [Ecotrin Low Dose] 81 mg PO DAILY 03/04/16 02/09/18 History Levothyroxine Sodium [Synthroid] 88 mcg PO DAILY 02/09/18 02/09/18 History Nabumetone [Relafen] 500 mg PO BID 02/09/18 02/09/18 History Allergies Allergy/AdvReac Type Severity Reaction Status Date / Time clarithromycin [From Biaxin] AdvReac Nausea Verified 02/09/18 14:20 Physical Exam Vitals: Intake and Output 03/30/18 03/31/18 03/31/18 22:59 06:59 14:59 Other: Weight 72.575 kg Results Current Medications Generic Name Dose Route Start Last Admin Trade Name Freq PRN Reason Stop Dose Admin Alprazolam 0.25 mg 03/31/18 11:04 Xanax PO Q6HR PRN Mild Anxiety Alprazolam 0.5 mg 03/31/18 11:04 Xanax PO Q6HR PRN Moderate Anxiety Aspirin 325 mg 03/31/18 11:05 Aspirin PO 03/31/18 11:06 ONCE ONE Atorvastatin Calcium 80 mg 03/31/18 11:04 Lipitor PO 03/31/18 11:05 ONCE STA Sodium Chloride 1,000 ml/ IV 1,000 mls @ 72.57 mls/hr 03/31/18 11:04 Solution IV 04/01/18 00:50 .[id number] ONE 1 ML/KG/HR Nitroglycerin 0.4 mg 03/31/18 11:04 Nitrostat SUBLINGUAL Q5M PRN Chest Pain Intake and Output 03/30/18 03/31/18 03/31/18 22:59 06:59 14:59 Other: Weight 72.575 kg Patient Weight 04/01/18 06:59 Weight 72.575 kg
[2018-03-31 11:36] LABS: Basophils % (A) 1 %; Eosinophils # (A) 0.2 k/uL (0-0.7); Eosinophils % (A) 5 %; HCT 42.7 % (34.0-46.0); HGB 13.5 gm/dL (11.4-16.0); Lymphocytes # (A) 1.4 k/uL (1.0-4.8); Lymphocytes % (A) 31 %; MCH 28.9 pg (25.0-35.0); MCHC 31.6 g/dL (31.0-37.0); MCV 91.7 fL (80.0-100.0); Mean Platelet Volume 8.3; Monocytes # (A) 0.2 k/uL (0-1.0); Monocytes % (A) 5 %; Neutrophils # (A) 2.5 k/uL (1.3-7.7); Neutrophils % (A) 57 %; Platelet Count 204 k/uL (150-450); RBC 4.66 m/uL (3.80-5.40); RDW 13.8 % (11.5-15.5); WBC 4.5 k/uL (3.8-10.6)
--- NOTE | 2018-03-31 11:37 | ECHOS ---
STRESS ECHOCARDIOGRAM INDICATIONS: Chest pain MEDICATIONS: Aspirin, Ativan, levothyroxine. BASELINE HEART RATE: 83 BASELINE BLOOD PRESSURE: 152/97 MAXIMUM HEART RATE: 148 MAXIMUM BLOOD PRESSURE: 184/99 85% MPHR: 139 100% MPHR: 164 METS: 8.5 MAXIMUM STAGE REACHED: 3 TOTAL EXERCISE TIME: 7:00 CLINICAL INFORMATION: STRESS DATA: Pretesting physical examination showed a heart rate of 83, pressure is 152/97 mmHg. Baseline EKG showed sinus mechanism with ST changes in the inferolateral leads. The patient exercised on the treadmill according to P[place] protocol for a total of 7 minutes and achieved 8.5 METs. Max heart rate was 148, which is about 90% of maximum predicted heart rate. Maximum blood pressure was 184/99 mmHg. Clinically, the patient did not have any symptoms of chest pain or discomfort but the EKG showed about 4-[address]-segment changes concerning for ischemia. ECHOCARDIOGRAM IMAGES: Echocardiogram images from parasternal long axis view, parasternal short axis view, apical 4 chamber and apical 2 chamber views were obtained as the baseline images, at the peak of the heart rate as well as on recovery and the echo revealed evidence of wall motion abnormalities in the inferior segments quite concerning for ischemia. CONCLUSION: 1. Good exercise tolerance. 2. Abnormal EKG in response to exercise. 3. Abnormal echocardiogram in response to exercise. 4. This is a very abnormal stress echocardiogram concerning for inducible ischemia. MMODL / IJN: [id number] /
[2018-03-31 11:50] LABS: Albumin 4.4 g/dL (3.5-5.0); Anion Gap 9 mmol/L; Blood Urea Nitrogen 15 mg/dL (7-17); Calcium 9.6 mg/dL (8.4-10.2); Carbon Dioxide 21 mmol/L (22-30); Chloride 112 mmol/L (98-107); Cholesterol 273 mg/dL (<200); Glucose 89 mg/dL (74-99); HDL Cholesterol 66 mg/dL (40-60); LDL Cholesterol,Calculated 188 mg/dL (0-99); Sodium 142 mmol/L (137-145); Total Bilirubin 0.7 mg/dL (0.2-1.3); Total Protein 7.7 g/dL (6.3-8.2); Triglycerides 94 mg/dL (<150)
[2018-03-31 11:57] LABS: ALT 25 U/L (9-52); AST 23 U/L (14-36); Alkaline Phosphatase 63 U/L (38-126); Potassium 5.1 mmol/L (3.5-5.1)
--- NOTE | 2018-03-31 12:19 | XR ---
EXAMINATION TYPE: XR chest 2V DATE OF EXAM: 03/31/2018 COMPARISON: 02/09/2018 INDICATION: Chest pain TECHNIQUE: Frontal and lateral views of the chest are obtained. FINDINGS: The heart size is normal. The pulmonary vasculature is normal. There may be some subtle infiltrate within the right midlung. This could be chronic present previousl y. Follow-up is warranted. IMPRESSION: 1. Subtle density within the right midlung may be some mild infiltrate. Underlying nodule may be pres ent. Recommend follow-up chest x-ray in 2-3 months.
--- NOTE | 2018-03-31 13:26 | ECHOF ---
Referral Reason:cp MEASUREMENTS -------- HEIGHT: 162.6 cm WEIGHT: 72.6 kg BP: IVSd: 1.1 cm (0.6 - 1.1) LVIDd: 4.1 cm (3.9 - 5.3) LVPWd: 1.2 cm (0.6 - 1.1) IVSs: 1.6 cm LVIDs: 2.8 cm LVPWs: 1.3 cm LAESV Index (A-L): 25.28 ml/m Ao Diam: 3.4 cm (2.0 - 3.7) AV Cusp: 1.9 cm (1.5 - 2.6) LA Diam: 2.0 cm (2.7 - 3.8) MV EXCURSION: 19.740 mm (> 18.000) MV EF SLOPE: 121 mm/s (70 - 150) EPSS: 1.5 cm MV E Dwight: 0.83 m/s MV DecT: 177 ms MV A Dwight: 0.61 m/s MV E/A Ratio: 1.35 RAP: 5.00 mmHg RVSP: 35.72 mmHg FINDINGS -------- Sinus rhythm. This was a technically good study. The left ventricular size is normal. There is mild concentric left ventricular hypertrophy. Overa ll left ventricular systolic function is mildly impaired with, an EF between 45 - 50 %. Basal infer olateral hypokinesis. The right ventricle is normal in size and function. Normal LA size by volume 22+/-6 ml/m2. The right atrium is normal in size. The aortic valve is trileaflet, and appears structurally normal. No aortic stenosis or regurgitation. The mitral valve leaflets are mildly thickened. Mild mitral regurgitation is present. Mild tricuspid regurgitation present. The right ventricular systolic pressure, as measured by Doppl er, is 35.72mmHg. Pulmonic valve appears structurally normal. The aortic root size is normal. Normal inferior vena cava with normal inspiratory collapse consistent with estimated right atrial pre ssure of 5 mmHg. The pericardium is normal. CONCLUSIONS -------- 1. Sinus rhythm. 2. This was a technically good study. 3. The left ventricular size is normal. 4. There is mild concentric left ventricular hypertrophy. 5. Overall left ventricular systolic function is mildly impaired with, an EF between 45 - 50 %. 6. Basal inferolateral hypokinesis. 7. The right ventricle is normal in size and function. 8. Normal LA size by volume 22+/-6 ml/m2. 9. The right atrium is normal in size. 10. The aortic valve is trileaflet, and appears structurally normal. No aortic stenosis or regurgitat ion. 11. The mitral valve leaflets are mildly thickened. 12. Mild mitral regurgitation is present. 13. Mild tricuspid regurgitation present. 14. The right ventricular systolic pressure, as measured by Doppler, is 35.72mmHg. 15. Pulmonic valve appears structurally normal. 16. The aortic root size is normal. 17. Normal inferior vena cava with normal inspiratory collapse consistent with estimated right atrial pressure of 5 mmHg. 18. The pericardium is normal. HEALTH AND SAFETY TECHNICIAN: Edilma Pleitez RDCS
[2018-03-31] MEDS ORDERED: IV FLUID CONTINUATION 1,000 ML IV ONE (14:06)
[2018-03-31] MEDS ORDERED: MIDAZOLAM 2 MG/2 ML VIAL IVP ONE (14:12)
[2018-03-31] MEDS ORDERED: LIDOCAINE 1% INJ 10MG/ML (20 ML MDV) SQ ONE (14:16)
[2018-03-31] MEDS: VERAPAMIL SYRINGE (5 MG/10 ML) INTRAARTER ONE ×2 (14:17→14:28)
[2018-03-31] MEDS ORDERED: fentaNYL (PF) 50 MCG/ML 2 ML AMP IVP ONE (14:23)
[2018-03-31] MEDS ORDERED: HEPARIN SODIUM 1,000 UN/ML (10ML VL) IV ONE (14:26)
[2018-03-31] MEDS ORDERED: IOPAMIDOL-370 150ML BTL INJ ONE (14:31)
[2018-03-31] MEDS ORDERED: RX INFO: IV CONTRAST WAS GIVEN 1 EACH MISC MISCELLANE PRN (14:32)
[2018-03-31] MEDS ORDERED: SODIUM CHLORIDE 0.9% 1,000 ML IV SCH (14:45)
--- NOTE | 2018-03-31 14:58 | CC ---
CARDIAC CATHETERIZATION REPORT DATE OF SERVICE: 03/31/2018 PERFORMING PHYSICIAN: Santino Ness MD, Manufacturing Cost Estimator. PROCEDURE PERFORMED: Selective right and left coronary angiogram. INDICATION: This is a pleasant 57-year-old female patient with dyslipidemia and LDL of about 180, who was sent by her primary care physician, Dr. Garcia, to undergo a stress echocardiogram. The patient did have significant and ischemic EKG changes in response to exercise as well as inducible ischemia by echo. Because of that, a heart catheterization was advised. APPROACH: Right radial artery. COMPLICATION: None. LEVEL OF SEDATION: Moderate sedation length of 14 minutes. PROCEDURE DESCRIPTION: After obtaining an informed consent, the patient was brought to the cardiac quality assurance lab technician. The right radial artery was cannulated using micropuncture technique. The micropuncture wire passed easily, then I placed a 6-Maltese sheath in the right radial artery. After that, I did give the patient 2 mg of verapamil IA and 10,000 units of heparin IV. Subsequently, I did selective right and left coronary angiogram using JR4 and JL3.5 catheters. The procedure was completed without any complication. SELECTIVE CORONARY ANGIOGRAM: 1. The right coronary artery is a large caliber vessel and it is a superdominant vessel. The RCA is chronically occluded in the mid portion and long area of occlusion extends from the mid all the way to the distal portion. 2. The left main has mild disease only, appeared to be in the range of 30% to 40%. It bifurcates into left circumflex and left anterior descending artery. 3. The left circumflex is a large caliber vessel. It is a nondominant vessel. The proximal circumflex appeared to be normal. The mid circumflex is normal and gives rise into a large OM branch which bifurcates into 2 subbranches, appeared to be angiographically normal and the circumflex continued after that as a medium caliber vessel in the AV groove. 4. The LAD, the proximal LAD appeared to be angiographically normal. It gives rise into first diagonal branch which is a medium caliber vessel, appeared to have mild ostial disease. The mid LAD is normal and gives rise into a second diagonal branch which appeared to be angiographically normal and the LAD distally appeared to be angiographically normal. CONCLUSION: Severe single-vessel coronary artery disease with chronic total occlusion of the right coronary artery which fills by bridging collaterals from the left coronary system. POSTPROCEDURE MANAGEMENT: 1. I recommended maximize medical treatment at this point. Starting the patient on aspirin, beta-shay, oral nitrate, and high-intensity statin. 2. Continue following up with her. 3. Myocardial perfusion imaging stress test probably as an outpatient to assess the size of ischemia in the right coronary artery territory. 4. Follow up with the patient after that. LISHA / WILLI: [id number] /
[2018-03-31] MEDS: ISOSORBIDE MONONITRATE ER 30 MG TAB.ER.24H PO SCH (15:33)
[2018-03-31] MEDS ORDERED: Acetaminophen-Codeine 300-30mg TAB PO PRN (18:27)
--- NOTE | 2018-03-31 19:19 | P.HPIM ---
History of Present Illness H&P Date: 03/31/18 Chief Complaint: CAD, positive stress test, history of rheumatoid arthritis, hypertension, h 57-year-old female one of Dr. Garcia's patient with past medical history of rheumatoid arthritis, hypertension, hypothyroidism hyperlipidemia who has been complaining of mild atypical chest pain on and off was referred to cardiology for outpatient stress test which was done today successfully came back slightly bit abnormal. Patient brought to the labeling associate by Dr. Ness and ended up having heart catheter findings were consistent with diffuse disease in the right coronary artery with bridging and collateral circulation coming from the LAD. Patient did not require any angioplasty or stent placement was admitted to the floor and will be discharged home when the catheter site is not bleeding. She is having mild headache and slight muscle pain. Review of Systems CONSTITUTIONAL: Well-developed no acute respiratory distress. EYES: No icterus sclerae, no conjunctivitis. EARS, NOSE, MOUTH, THROAT, and FACE: No sore throat, lymphadenopathy, carotid bruits or deformity. RESPIRATORY: No SOB cough or wheezes. CARDIOVASCULAR: No CP, Palpitation, PND, Orthopnea, or angina. GASTROINTESTINAL: No Abd pain, Nausea or vomiting, no Diarrhea or constipation, No GI Bleed, no distention or masses. GENITOURINARY: Negative for Hematuria or UTI, no kidney stones. INTEGUMENT/BREAST: Negative for any muscular injury with mild osteoarthritis.. HEMATOLOGIC/LYMPHATIC: Negative for bleed or purpura. MUSCULOSKELTAL: Positive generalized arthralgia with rheumatoid arthritis. NEURLOGICAL: No LOC, Sz or syncope, blurred vision dizziness or abnormality.. BEHAVIORAL/PSYCH: Negative. ENDOCRINE: Negative. Past Medical History Past Medical History: Chest Pain / Angina, Hyperlipidemia, Rheumatoid Arthritis (RA), Thyroid Disorder Additional Past Medical History / Comment(s): Pt states she has had 3 spots on her lungs being monitored by cat scan and last cat scan was today 03/31/18, past multiple ovarian cysts with surgery and pre cancerous cells in uterus with srugery, multiple bilateral ear infections as a child, she states she was recently treated for a sinus infection with antibiotic and steroids. History of Any Multi-Drug Resistant Organisms: None Reported Past Surgical History: No Surgical Hx Reported Additional Past Surgical History / Comment(s): Multiple abdominal laparoscopies d/t ovarian benign cysts, pt states she had precancerous spots lasered off her uterus at [facility] years ago, colonoscopy. Past Anesthesia/Blood Transfusion Reactions: Motion Sickness, Postoperative Nausea & Vomiting (PONV) Smoking Status: Former smoker - Past Family History Father Family Medical History: Coronary Artery Disease (CAD), Myocardial Infarction (AK ) Additional Family Medical History / Comment(s): Pt states her father has been in and out of her life. She does not recall how old father was with his AK Mother Family Medical History: Coronary Artery Disease (CAD), Myocardial Infarction (AK ) Additional Family Medical History / Comment(s): Mother had CABG-3 vessel but pt cannot recall at what age mother had a AK or CABG Brother(s) Family Medical History: Myocardial Infarction (AK) Additional Family Medical History / Comment(s): Pt states her brother has been told he has a heart of a 90 yr old. He has had multiple MIs and pt does not recall at what age brother was with first AK Sister(s) Family Medical History: Coronary Artery Disease (CAD) Additional Family Medical History / Comment(s): Sister had PCI with stenting. Medications and Allergies Home Medications Medication Instructions Recorded Confirmed Type Aspirin EC [Ecotrin Low Dose] 81 mg PO DAILY 03/04/16 03/31/18 History Levothyroxine Sodium [Synthroid] 88 mcg PO DAILY 02/09/18 03/31/18 History Nabumetone [Relafen] 500 mg PO BID 02/09/18 03/31/18 History Atorvastatin [Lipitor] 80 mg PO HS #180 tab 03/31/18 Rx Fluticasone Nasal [place] [Flonase 1 spray EA NOSTRIL BID 03/31/18 03/31/18 History Nasal [place]] Isosorbide Mononitrate ER [Imdur] 30 mg PO DAILY #90 tab.er.24h 03/31/18 Rx Metoprolol Tartrate [Lopressor] 25 mg PO BID #180 tab 03/31/18 Rx Nitroglycerin Sl Tabs [Nitrostat] 0.4 mg SUBLINGUAL Q5M PRN #1 bottle 03/31/18 Rx Allergies Allergy/AdvReac Type Severity Reaction Status Date / Time clarithromycin [From Biaxin] AdvReac Nausea Verified 03/31/18 15:50 Physical Exam Vitals: Vital Signs Temp Pulse Pulse Resp BP Pulse Ox 03/31/18 17:30 65 18 125/75 93 L 03/31/18 16:59 78 18 132/71 94 L 03/31/18 16:30 74 18 150/78 95 03/31/18 16:00 74 18 150/88 94 L 03/31/18 15:45 69 18 135/81 96 03/31/18 15:30 74 18 136/77 96 03/31/18 15:15 68 18 134/80 97 03/31/18 15:00 97.6 F 71 18 136/82 97 03/31/18 12:00 90 18 147/91 100 03/31/18 11:04 87 Intake and Output 03/31/18 03/31/18 03/31/18 06:59 14:59 22:59 Intake Total 75 240 Balance 75 240 Intake: IV 75 Oral 240 Other: # Voids 1 Weight 72.575 kg General Appearance: Alert, cooperative, no distress, appears stated age. Neck HEENT: Supple, no lymphadenopathy, no thyroid enlargement, no carotid bruits. Lungs: Clear to auscultation without crackles or wheezes no rhonchi, no deformity. Chest Wall: Chest wall normal expansion with deep inspiration no tenderness and no deformity was found on exam, no costochondral pain or discomfort. Heart: Regular rate and rhythm, S1, S2 normal, no murmur, rub or gallop. Back: Symmetric, no curvature, ROM normal, no CVA tenderness. Abdomen: Soft, non-tender, bowel sounds active all four quadrants, no masses, no organomegaly. Extremities: Extremities normal, atraumatic, no cyanosis or edema. Generalized rheumatoid arthritis, the right wrist with the insertion of the heart cath side looks fine still oozing tiny with blood. Pulses: 2+ and symmetric. Skin: Skin color, texture, tugor normal, no rashes or lesions. Neurologic: Alert oriented x3 cranial nerves II through XII intact, no motor deficit, no abnormal balance or gait. Results CBC & Chem 7: 03/31/18 11:25 03/31/18 11:25 Labs: Abnormal Lab Results - Last 24 Hours (Table) 03/31/18 Range/Units 11:25 Chloride 112 H (98-107) mmol/L Carbon Dioxide 21 L (22-30) mmol/L Cholesterol 273 H (<200) mg/dL LDL Cholesterol, Calc 188 H (0-99) mg/dL HDL Cholesterol 66 H (40-60) mg/dL Thrombosis Risk Factor Assmnt - DVT/VTE Prophylaxis DVT/VTE Prophylaxis: Mechanical Prophylaxis ordered - Choose All That Apply Any of the Below Risk Factors Present?: Yes Each Factor Represents 1 point: Age 41-60 years, Obesity (BMI >25) Other Risk Factors: No Other congenital or acquired thrombophilia - If yes, enter type in comment: No Thrombosis Risk Factor Assessment Total Risk Factor Score: 2 Thrombosis Risk Factor Assessment Level: Low Risk Assessment and Plan Plan: 1 Unstable angina: Patient has been having recurrent chest pain with positive stress test ended up going for heart catheter with finding of CAD. 2 CAD: Post heart cath with diffuse stenosis of the right coronary artery midportion with collateral circulation and bridging from the LAD. Patient will be continue medical management maximize controlling blood pressure, cholesterol , watch for any insulin resistance status and blood sugar along with no nicotine and increase activity. 3 hypertension: Patient was on metoprolol 25 mg twice a day Will add smaller dose of cecy inhibitor if needed. 4 rheumatoid arthritis: Patient seen rheumatology and [place] and was started on Plaquenil waiting to see her renewable energy consultant and awaiting for eye exam before starting medication. 5 hypothyroidism: Continue levothyroxine 88 g daily. 6 hyperlipidemia: Patient was started on atorvastatin 80 mg daily continue medication. 7 mild anxiety: Patient is on alprazolam on as needed basis. 8 GI prophylaxis: On Pepcid 20 mg daily. DVT prophylaxis: Early mobilization and knee-high CAMRON hose. CODE STATUS: Full code. Admit patient to observation status for overnight.
[2018-03-31] MEDS: FLUTICASONE 50MCG/SPRAY NASAL 16GM EA NOSTRIL SCH (21:34)
[2018-03-31] MEDS: METOPROLOL TARTRATE 25 MG TAB PO SCH (21:34)
[2018-04-01] MEDS ORDERED: LEVOTHYROXINE 88 MCG TAB PO SCH (06:30)
[2018-04-01 07:32] VITALS: BP 111/74; PULSE 67; RESP 18; TEMP 98.7
[2018-04-01] MEDS: FLUTICASONE 50MCG/SPRAY NASAL 16GM EA NOSTRIL SCH (08:23)
[2018-04-01] MEDS: ISOSORBIDE MONONITRATE ER 30 MG TAB.ER.24H PO SCH (08:23)
[2018-04-01] MEDS: METOPROLOL TARTRATE 25 MG TAB PO SCH (08:23)
[2018-04-01] MEDS ORDERED: FAMOTIDINE 20 MG TAB PO SCH (09:00)
[2018-04-01] MEDS ORDERED: ASPIRIN 81 MG PO SCH ×2 (09:00)
--- NOTE | 2018-04-01 10:48 | P.DS ---
Providers Date of admission: 03/31/18 10:57 Attending physician: Ritika Garcia Consults: 03/31/18 11:07 Consult Physician Stat Consulting Provider: Santino Ness Reason/Comments: cp Do you want consulting provider notified?: Already Contacted Primary care physician: Ritika Garcia [facility] Course: Chief Complaint: CAD, positive stress test, history of rheumatoid arthritis, hypertension, h 57-year-old female one of Dr. Garcia's patient with past medical history of rheumatoid arthritis, hypertension, hypothyroidism hyperlipidemia who has been complaining of mild atypical chest pain on and off was referred to cardiology for outpatient stress test which was done today successfully came back slightly bit abnormal. Patient brought to the chemical laboratory chief by Dr. Ness and ended up having heart catheter findings were consistent with diffuse disease in the right coronary artery with bridging and collateral circulation coming from the LAD. Patient did not require any angioplasty or stent placement was admitted to the floor and will be discharged home when the catheter site is not bleeding. She is having mild headache and slight muscle pain. 04/01/2018: Patient is resting comfortably without any new complaints. Puncture site is clean and dry. Patient denies any pain or discomfort at this time. Discussed with patient medication regime. Continue on Lipitor 80 mg until seen by Dr. Garcia. Instructed patient to follow-up with ophthalmology. Review of Systems CONSTITUTIONAL: Well-developed no acute respiratory distress. EYES: No icterus sclerae, no conjunctivitis. EARS, NOSE, MOUTH, THROAT, and FACE: No sore throat, lymphadenopathy, carotid bruits or deformity. RESPIRATORY: No SOB cough or wheezes. CARDIOVASCULAR: No CP, Palpitation, PND, Orthopnea, or angina. GASTROINTESTINAL: No Abd pain, Nausea or vomiting, no Diarrhea or constipation, No GI Bleed, no distention or masses. GENITOURINARY: Negative for Hematuria or UTI, no kidney stones. INTEGUMENT/BREAST: Negative for any muscular injury with mild osteoarthritis.. HEMATOLOGIC/LYMPHATIC: Negative for bleed or purpura. MUSCULOSKELTAL: Positive generalized arthralgia with rheumatoid arthritis. NEURLOGICAL: No LOC, Sz or syncope, blurred vision dizziness or abnormality.. BEHAVIORAL/PSYCH: Negative. ENDOCRINE: Negative. Medications and Allergies Home Medications Medication Instructions Recorded Confirmed Type Aspirin EC [Ecotrin Low Dose] 81 mg PO DAILY 03/04/16 03/31/18 History Levothyroxine Sodium [Synthroid] 88 mcg PO DAILY 02/09/18 03/31/18 History Nabumetone [Relafen] 500 mg PO BID 02/09/18 03/31/18 History Atorvastatin [Lipitor] 80 mg PO HS #180 tab 03/31/18 Rx Fluticasone Nasal [place] [Flonase 1 spray EA NOSTRIL BID 03/31/18 03/31/18 History Nasal [place]] Isosorbide Mononitrate ER [Imdur] 30 mg PO DAILY #90 tab.er.24h 03/31/18 Rx Metoprolol Tartrate [Lopressor] 25 mg PO BID #180 tab 03/31/18 Rx Nitroglycerin Sl Tabs [Nitrostat] 0.4 mg SUBLINGUAL Q5M PRN #1 bottle 03/31/18 Rx Allergies Allergy/AdvReac Type Severity Reaction Status Date / Time clarithromycin [From Biaxin] AdvReac Nausea Verified 03/31/18 15:50 Physical Exam General Appearance: Alert, cooperative, no distress, appears stated age. Neck HEENT: Supple, no lymphadenopathy, no thyroid enlargement, no carotid bruits. Lungs: Clear to auscultation without crackles or wheezes no rhonchi, no deformity. Chest Wall: Chest wall normal expansion with deep inspiration no tenderness and no deformity was found on exam, no costochondral pain or discomfort. Heart: Regular rate and rhythm, S1, S2 normal, no murmur, rub or gallop. Back: Symmetric, no curvature, ROM normal, no CVA tenderness. Abdomen: Soft, non-tender, bowel sounds active all four quadrants, no masses, no organomegaly. Extremities: Extremities normal, atraumatic, no cyanosis or edema. Generalized rheumatoid arthritis, the right wrist with the insertion of the heart cath side looks fine still oozing tiny with blood. Pulses: 2+ and symmetric. Skin: Skin color, texture, tugor normal, no rashes or lesions. Neurologic: Alert oriented x3 cranial nerves II through XII intact, no motor deficit, no abnormal balance or gait. Assessment and Plan Plan: 1 Unstable angina: Patient has been having recurrent chest pain with positive stress test ended up going for heart catheter with finding of CAD. 2 CAD: Post heart cath with diffuse stenosis of the right coronary artery midportion with collateral circulation and bridging from the LAD. Patient will be continue medical management maximize controlling blood pressure, cholesterol , watch for any insulin resistance status and blood sugar along with no nicotine and increase activity. 3 hypertension: Patient was on metoprolol 25 mg twice a day Will add smaller dose of cecy inhibitor if needed. 4 rheumatoid arthritis: Patient seen rheumatology and [facility] and was started on Plaquenil waiting to see her gasateria attendant and awaiting for eye exam before starting medication. 5 hypothyroidism: Continue levothyroxine 88 g daily. 6 hyperlipidemia: Patient was started on atorvastatin 80 mg daily continue medication. 7 mild anxiety: Patient is on alprazolam on as needed basis. 8 GI prophylaxis: On Pepcid 20 mg daily. Patient will be discharged home today and follow up with primary care in 1-2 days, cardiology within 2 weeks. Impression and plan of care have been directed as dictated by the signing physician. Francheska Hendrickson nurse practitioner acting as scribe for signing physician. Plan - Discharge Summary Discharge Rx Participant: No New Discharge Prescriptions: New Atorvastatin [Lipitor] 80 mg PO HS #180 tab Isosorbide Mononitrate ER [Imdur] 30 mg PO DAILY #90 tab.er.24h Metoprolol Tartrate [Lopressor] 25 mg PO BID #180 tab Nitroglycerin Sl Tabs [Nitrostat] 0.4 mg SUBLINGUAL Q5M PRN #1 bottle PRN Reason: Chest Pain Continue Aspirin EC [Ecotrin Low Dose] 81 mg PO DAILY No Action Nabumetone [Relafen] 500 mg PO BID Levothyroxine Sodium [Synthroid] 88 mcg PO DAILY Fluticasone Nasal [place] [Flonase Nasal [place]] 1 spray EA NOSTRIL BID Discharge Medication List Aspirin EC [Ecotrin Low Dose] 81 mg PO DAILY 03/04/16 [History] Levothyroxine Sodium [Synthroid] 88 mcg PO DAILY 02/09/18 [History] Nabumetone [Relafen] 500 mg PO BID 02/09/18 [History] Atorvastatin [Lipitor] 80 mg PO HS #180 tab 03/31/18 [Rx] Fluticasone Nasal [place] [Flonase Nasal [place]] 1 spray EA NOSTRIL BID 03/31/18 [ History] Isosorbide Mononitrate ER [Imdur] 30 mg PO DAILY #90 tab.er.24h 03/31/18 [Rx] Metoprolol Tartrate [Lopressor] 25 mg PO BID #180 tab 03/31/18 [Rx] Nitroglycerin Sl Tabs [Nitrostat] 0.4 mg SUBLINGUAL Q5M PRN #1 bottle 03/31/18 [ Rx] Follow up Appointment(s)/Referral(s): Ritika Garcia MD [Primary Care Provider] - 1 Week Zoltan Coulter MD [STAFF PHYSICIAN] - 04/07/18 1:30 pm Patient Instructions/Handouts: *Surgery [facility] - After Heart Catheterization - Cell Tender Instructions Activity/Diet/Wound Care/Special Instructions: See Activity Restriction Instructions Discharge Disposition: HOME SELF-CARE
[2018-04-01] MEDS ORDERED: ATORVASTATIN 80 MG TAB PO SCH (21:00)
== END 2018-04-01 09:11 | disposition home or self-care (01) ==
LOC: RADCTMAIN 08:28 → 1SOBS 10:57
PROVIDERS: ADMIT Family Medicine; ATTEND Family Medicine
DX: I25.110 Atherosclerotic heart disease of native coronary artery with unstable angina pectoris (principal); I25.82 Chronic total occlusion of coronary artery; M06.9 Rheumatoid arthritis, unspecified; I10 Essential (primary) hypertension; E03.9 Hypothyroidism, unspecified; E78.5 Hyperlipidemia, unspecified; R91.8 Other nonspecific abnormal finding of lung field; F41.9 Anxiety disorder, unspecified; R51 Headache; M79.10 Myalgia, unspecified site; E66.9 Obesity, unspecified; Z68.27 Body mass index [BMI] 27.0-27.9, adult; Z79.82 Long term (current) use of aspirin; Z79.890 Hormone replacement therapy; Z79.899 Other long term (current) drug therapy; Z88.1 Allergy status to other antibiotic agents; Z87.891 Personal history of nicotine dependence; Z82.49 Family history of ischemic heart disease and other diseases of the circulatory system; Z79.1 Long term (current) use of non-steroidal anti-inflammatories (NSAID)
CPT/HCPCS: 93306; 93351; 93454; 80061; 80053; 85025; 71046; 71260; G0378 ×2; C1769; C1894; J2250; J2001; J3010; J1644; Q9967 ×2

== ENCOUNTER → 2018-05-02 | Outpatient (CLI) | payer BC | LOC: LABWHC1 13:13 | PROVIDERS: ATTEND Otolaryngology | DX: J30.89 Other allergic rhinitis (principal) | CPT/HCPCS: 36415 ==

== ENCOUNTER 2019-02-22 06:50 | Observation (INO) | payer BC ==
[2019-02-22] MEDS ORDERED: ASPIRIN 81 MG PO STA (07:08)
--- NOTE | 2019-02-22 07:17 | ED ---
Chest Pain HPI - General Source: patient, RN notes reviewed Mode of arrival: ambulatory Limitations: no limitations <Ben Yan - Last Filed: 02/22/19 08:53> <Jose Pagan - Last Filed: 02/22/19 08:58> - General Chief Complaint: Chest Pain Stated Complaint: Chest Pain Time Seen by Provider: 02/22/19 06:58 - History of Present Illness Initial Comments: This a 58-year-old female presents emergency Department chief complaint of chest pain. Patient states she's been having on and off symptoms of the pain worsened this morning. She has known blockages based on her Last year. Patient also has been told that she has anxiety. Patient took her Xanax as directed by Dr. Garcia in the past but states it did not alleviate her symptoms so she presented to emergency department. Patient does not that she has a history of hyperlipidemia, hypertension coronary disease. Patient denies any recent fevers chills cough congestion. Patient has no current nausea vomiting. Patient states pain is recommended central to left-sided low back pain no history DVT or PE no shortness of breath. (Ben Yan) - Related Data Home Medications Medication Instructions Recorded Confirmed Aspirin EC [Ecotrin Low Dose] 81 mg PO DAILY 03/04/16 02/22/19 Levothyroxine Sodium [Synthroid] 88 mcg PO DAILY@0300 02/09/18 02/22/19 Hydroxychloroquine Sulfate 200 mg PO BID 02/22/19 02/22/19 [Plaquenil] Previous Rx's Medication Instructions Recorded Atorvastatin [Lipitor] 80 mg PO HS #180 tab 03/31/18 Isosorbide Mononitrate ER [Imdur] 30 mg PO DAILY #90 tab.er.24h 03/31/18 Metoprolol Tartrate [Lopressor] 25 mg PO BID #180 tab 03/31/18 Nitroglycerin Sl Tabs [Nitrostat] 0.4 mg SUBLINGUAL Q5M PRN #1 bottle 03/31/18 Allergies Allergy/AdvReac Type Severity Reaction Status Date / Time clarithromycin [From Biaxin] AdvReac Nausea Verified 02/22/19 07:51 Review of Systems ROS Other: All systems not noted in ROS Statement are negative. <Ben Yan - Last Filed: 02/22/19 08:53> ROS Other: All systems not noted in ROS Statement are negative. <Jose Pagan - Last Filed: 02/22/19 08:58> ROS Statement: Those systems with pertinent positive or pertinent negative responses have been documented in the HPI. EKG Findings - EKG Comments: EKG Findings:: EKG performed at 7:02 normal sinus rhythm rate of 73 WV 136 QRS 84 QT/QTC 400/440 <Ben Yan - Last Filed: 02/22/19 08:53> Past Medical History Past Medical History: Chest Pain / Angina, Hyperlipidemia, Rheumatoid Arthritis (RA), Thyroid Disorder Additional Past Medical History / Comment(s): Pt states she has had 3 spots on her lungs being monitored by cat scan and last cat scan was today 03/31/18, past multiple ovarian cysts with surgery and pre cancerous cells in uterus with srugery, multiple bilateral ear infections as a child, she states she was recently treated for a sinus infection with antibiotic and steroids. History of Any Multi-Drug Resistant Organisms: None Reported Past Surgical History: No Surgical Hx Reported Additional Past Surgical History / Comment(s): Multiple abdominal laparoscopies d/t ovarian benign cysts, pt states she had precancerous spots lasered off her uterus at [facility] years ago, colonoscopy. Past Anesthesia/Blood Transfusion Reactions: Motion Sickness, Postoperative Nausea & Vomiting (PONV) Past Psychological History: Anxiety Smoking Status: Former smoker Past Alcohol Use History: None Reported Past Drug Use History: None Reported - Past Family History Father Family Medical History: Coronary Artery Disease (CAD), Myocardial Infarction (RI) Additional Family Medical History / Comment(s): Pt states her father has been in and out of her life. She does not recall how old father was with his RI Mother Family Medical History: Coronary Artery Disease (CAD), Myocardial Infarction (RI) Additional Family Medical History / Comment(s): Mother had CABG-3 vessel but pt cannot recall at what age mother had a RI or CABG Brother(s) Family Medical History: Myocardial Infarction (RI) Additional Family Medical History / Comment(s): Pt states her brother has been told he has a heart of a 90 yr old. He has had multiple MIs and pt does not recall at what age brother was with first RI Sister(s) Family Medical History: Coronary Artery Disease (CAD) Additional Family Medical History / Comment(s): Sister had PCI with stenting. <Ben Yan M - Last Filed: 02/22/19 08:53> General Exam Limitations: no limitations General appearance: alert, in no apparent distress, anxious Head exam: Present: atraumatic, normocephalic, normal inspection Eye exam: Present: normal appearance, PERRL, EOMI. Absent: scleral icterus, conjunctival injection, periorbital swelling ENT exam: Present: normal exam, normal oropharynx, mucous membranes moist, TM's normal bilaterally, normal external ear exam Neck exam: Present: normal inspection, full ROM. Absent: tenderness, meningismus, lymphadenopathy Respiratory exam: Present: normal lung sounds bilaterally. Absent: respiratory distress, wheezes, rales, rhonchi, stridor Cardiovascular Exam: Present: regular rate (Patient was tachycardic in triage though heart rate 73 and EKG, normal sinus), normal rhythm, normal heart sounds. Absent: systolic murmur, diastolic murmur, rubs, gallop, clicks Neurological exam: Present: alert, oriented X3, CN II-XII intact Skin exam: Present: warm, dry, intact, normal color. Absent: rash <Ben Yan M - Last Filed: 02/22/19 08:53> Course <Jose Pagan - Last Filed: 02/22/19 08:58> Vital Signs 02/22/19 02/22/19 02/22/19 06:53 07:15 07:24 Temperature 97.6 F Pulse Rate 130 H 63 Pulse Rate [ 110 H [facility] ] Respiratory 20 17 Rate Blood Pressure 167/92 O2 Sat by Pulse 98 100 Oximetry 02/22/19 02/22/19 07:48 08:00 Temperature Pulse Rate 60 55 L Pulse Rate [ [facility] ] Respiratory 18 16 Rate Blood Pressure 144/86 144/86 O2 Sat by Pulse 98 100 Oximetry - Reevaluation(s) Reevaluation #1: 02/22/19 08:57 PA supervision: I proceeded [id number] evaluation the patient she does present with complaints of chest pain. She does have a history of prior admissions for evaluation she does have evidence of previous catheterizations of 100% RCA occlusion with collateral circulation also a 40% occlusion of another vessel. Patient has had several more episodes of the chest pain while she was in the emergency department. Though the presentation is atypical due to her previous history she will be admitted I did discuss the case with Dr. Garcia. Her etiology will be consulted (Jose Pagan) Chest Pain MDM <Ben Yan - Last Filed: 02/22/19 08:53> - MDM Case discussed with Dr. Garcia recommended patient treatment cardiology consult patient will placed on heparin, nitro paste. Patient has known coronary disease. Labs EKG unremarkable at this time. (Ben Yan) Disposition <Ben Yan - Last Filed: 02/22/19 08:53> <Jose Pagan - Last Filed: 02/22/19 08:58> Clinical Impression: Chest pain Disposition: ADMITTED IP TO THIS [facility] Condition: Stable Referrals: Ritika Garcia MD [Primary Care Provider] - 1-2 days
[2019-02-22 07:49] LABS: Basophils % (A) 0 %; Eosinophils # (A) 0.1 k/uL (0-0.7); Eosinophils % (A) 4 %; HGB 12.1 gm/dL (11.4-16.0); Lymphocytes # (A) 0.9 k/uL (1.0-4.8); Lymphocytes % (A) 32 %; MCH 31.2 pg (25.0-35.0); MCHC 34.4 g/dL (31.0-37.0); MCV 90.6 fL (80.0-100.0); Mean Platelet Volume 8.2; Monocytes # (A) 0.2 k/uL (0-1.0); Monocytes % (A) 7 %; Neutrophils # (A) 1.6 k/uL (1.3-7.7); Neutrophils % (A) 56 %; Platelet Count 181 k/uL (150-450); RBC 3.86 m/uL (3.80-5.40); RDW 12.6 % (11.5-15.5); WBC 2.9 k/uL (3.8-10.6)
[2019-02-22 07:57] LABS: Partial Thromboplastin Time 23.2 sec (22.0-30.0); Prothrombin Time 10.4 sec (9.0-12.0)
--- NOTE | 2019-02-22 07:58 | XR ---
EXAMINATION TYPE: XR chest 2V DATE OF EXAM: 02/22/2019 COMPARISON: 03/31/2018 HISTORY: Chest pain TECHNIQUE: Frontal and lateral views of the chest are obtained. FINDINGS: There are again clustered nodules in the right midlung. On the CT of 03/31/2018 please were relatively stable from the prior CT of 06/03/2016 and favored to represent granulomatous disease alth ough [address] follow-up is recommended. There is no focal air space opacity, pleural effusion, or pneumothorax seen. The cardiac silhouette size is upper limits of normal in size. The osseous stru ctures are intact. IMPRESSION: 1. No acute cardiopulmonary process. 2. Clustered right midlung nodules that are favored to represent sequela of granulomatous change in t he prior CT of 03/31/2018. Follow-up CT in 12 months was recommended. The patient is currently due on a nonemergent basis.
[2019-02-22 08:02] LABS: ALT 21 U/L (4-34); AST 27 U/L (14-36); African American GFR (CKD) >90 (>60 ml/min/1.73 sqM); Albumin 3.8 g/dL (3.5-5.0); Alkaline Phosphatase 56 U/L (38-126); Anion Gap 10 mmol/L; Blood Urea Nitrogen 11 mg/dL (7-17); Calcium 9.1 mg/dL (8.4-10.2); Carbon Dioxide 22 mmol/L (22-30); Chloride 109 mmol/L (98-107); Glucose 111 mg/dL (74-99); Non-African American GFR(CKD) 86 (>60 ml/min/1.73 sqM); Potassium 4.3 mmol/L (3.5-5.1); Sodium 141 mmol/L (137-145); Total Bilirubin 0.6 mg/dL (0.2-1.3); Total Protein 6.5 g/dL (6.3-8.2)
[2019-02-22] MEDS ORDERED: HEPARIN SODIUM,PORCINE 5,000 UNIT/ML 1 ML VIAL IV PRN (08:54)
[2019-02-22] MEDS ORDERED: NITROGLYCERIN SL TABS 0.4 MG TAB SUBLINGUAL PRN (08:54)
[2019-02-22] MEDS ORDERED: HEPARIN SODIUM,PORCINE 5,000 UNIT/ML 1 ML VIAL IV ONE (08:54)
[2019-02-22] MEDS ORDERED: NITROGLYCERIN OINT 1 INCH/GM PACKET TOPICAL STA (08:55)
[2019-02-22] MEDS ORDERED: HEPARIN SOD,PORK IN 0.45% NACL 25,000 UNIT in 0.45% NACL 1 250ML.BAG IV SCH (09:00)
[2019-02-22 11:31] VITALS: BP 111/64; PULSE 68; RESP 18; TEMP 97.7
--- NOTE | 2019-02-22 12:12 | XR ---
EXAMINATION TYPE: XR ribs LT DATE OF EXAM: 02/22/2019 COMPARISON: Chest x-ray of the same date HISTORY: Left upper anterior rib pain TECHNIQUE: Frontal and oblique views of the left ribs were obtained FINDINGS: No acute displaced fracture nor healed fracture deformity is seen of the left ribs. No susp icious osseous lesion is identified on x-ray. Diffuse osseous demineralization is present. Mild acrom ioclavicular arthropathy is noted on the left with small marginal osteophytes. IMPRESSION: No acute displaced nor healed left rib fracture deformity. Mild left acromioclavicular ar thropathy.
--- NOTE | 2019-02-22 13:47 | ECHOF ---
Referral Reason:chest pain MEASUREMENTS -------- HEIGHT: 167.6 cm WEIGHT: 71.7 kg BP: 139/83 RVIDd: 2.7 cm (< 3.3) IVSd: 1.0 cm (0.6 - 1.1) LVIDd: 4.6 cm (3.9 - 5.3) LVPWd: 1.0 cm (0.6 - 1.1) IVSs: 1.4 cm LVIDs: 3.1 cm LVPWs: 1.6 cm LA Diam: 3.2 cm (2.7 - 3.8) LAESV Index (A-L): 28.51 ml/m Ao Diam: 3.8 cm (2.0 - 3.7) AV Cusp: 2.2 cm (1.5 - 2.6) MV EXCURSION: 17.484 mm (> 18.000) MV EF SLOPE: 98 mm/s (70 - 150) EPSS: 1.0 cm MV E Dwight: 0.87 m/s MV DecT: 212 ms MV A Dwight: 0.59 m/s MV E/A Ratio: 1.48 RAP: 5.00 mmHg RVSP: 32.45 mmHg TAPSE: 31.93 mm FINDINGS -------- Sinus rhythm. This was a technically good study. The left ventricular size is normal. Left ventricular wall thickness is normal. Overall left vent ricular systolic function is normal with, an EF between 60 - 65 %. Basal inferior LV wall motion is hypokinetic. Basal inferoseptal LV wall motion is hypokinetic. The right ventricle is normal in size. Normal LA size by volume 22+/-6 ml/m2. The right atrium is normal in size. Interatrial and interventricular septum intact. Trace to mild aortic regurgitation. Mild mitral regurgitation is present. Mild tricuspid regurgitation present. Right ventricular systolic pressure is normal at < 35 mmHg. Trace/mild (physiologic) pulmonic regurgitation. The aortic root is dilated measuring 3.8cm. Normal inferior vena cava with normal inspiratory collapse consistent with estimated right atrial pre ssure of 5 mmHg. There is no pericardial effusion. CONCLUSIONS -------- 1. Sinus rhythm. 2. This was a technically good study. 3. The left ventricular size is normal. 4. Left ventricular wall thickness is normal. 5. Overall left ventricular systolic function is normal with, an EF between 60 - 65 %. 6. Basal inferior LV wall motion is hypokinetic. 7. Basal inferoseptal LV wall motion is hypokinetic. 8. The right ventricle is normal in size. 9. Normal LA size by volume 22+/-6 ml/m2. 10. The right atrium is normal in size. 11. Interatrial and interventricular septum intact. 12. Trace to mild aortic regurgitation. 13. Mild mitral regurgitation is present. 14. Mild tricuspid regurgitation present. 15. Right ventricular systolic pressure is normal at < 35 mmHg. 16. Trace/mild (physiologic) pulmonic regurgitation. 17. The aortic root is dilated measuring 3.8cm. 18. Normal inferior vena cava with normal inspiratory collapse consistent with estimated right atrial pressure of 5 mmHg. 19. There is no pericardial effusion. NATURAL SCIENCE CURATOR: Kateryna Mars RDCS
--- NOTE | 2019-02-22 14:00 | ECHOS ---
STRESS ECHOCARDIOGRAM INDICATIONS: Chest pain. MEDICATIONS: Aspirin, levothyroxine, atorvastatin, Isosorbide mononitrate, metoprolol tartrate, Nitro tabs, hydroxy chloroquine, sulfate. BASELINE HEART RATE: 67 BASELINE BLOOD PRESSURE: 132/73 MAXIMUM HEART RATE: 140 MAXIMUM BLOOD PRESSURE: 137/74 85% MPHR: 139 100% MPHR: 163 METS: 9.5 MAXIMUM STAGE REACHED: 3 TOTAL EXERCISE TIME: 7.53 CLINICAL INFORMATION: Patient was exercised for a total period of 8 minutes. The peak heart rate of 140, was achieved. Maximum blood pressure of 138/74 mmHg was noted. Test was terminated because patient got short of breath. The patient did not complain of any chest pain during the test. Resting EKG shows normal sinus rhythm with normal [place] interval and QRS duration with minimal ST changes noted. During exercise about to 1.5-[address]-segment depression is noted in the inferior lateral leads without associated with any symptoms of angina. A downsloping ST-segment depression persisted for about 6 minutes in the postexercise period. The baseline echocardiographic images shows a small area of inferior basal and inferior septal hypokinesia in the immediate postexercise period. Inferobasal hypokinesia persist. The rest of the myocardial segments shows normal increase in the wall thickness and contractility. FINAL IMPRESSION: 1. This stress echocardiographic study shows a persistent wall motion abnormality in the inferior basal segment suggestive of prior inferior wall myocardial cardial infarction. The patient has a totally occluded right coronary artery. The rest of the myocardial segments were normal of mentation in the myocardial contractility. 2. The resting EKG portion of the stress shows minimal ST-T abnormalities during exercise about [address]-segment depression was noted in the inferolateral leads without associated with symptoms of angina. The stress EKG is unchanged as compared to the stress EKG done about a year ago. MMODL / IJN: [id number] /
--- NOTE | 2019-02-22 14:17 | P.HPIM ---
History of Present Illness H&P Date: 02/22/19 HISTORY AND PHYSICAL AND DISCHARGE SUMMARY: This is a 58-year-old female patient of Dr. Garcia and Dr. Alta Coulter with past medical history of rheumatoid arthritis, hypertension, hypothyroidism hyperlipidemia, coronary artery disease. Patient underwent a heart catheterization with Dr. Ness 03/31/2018 that found a single vessel coronary artery disease with chronic occlusion RCA with collateral circulation. She has had regular follow-up but has not had a recent stress test. She also follows with Dr. Crowley for pulmonary nodules and her last CAT scan was done March 2018 with recommendations for 12 month follow-up. At that time pulmonary nodules were highly favored to be benign and likely sequela of granulomatosis disease. Patient follows regularly with Dr. Benjamin in her last point it was 1-2 months ago. She usually goes 3-4 times per year. She has noted a facial rash around her eyes that she feels is related to her rheumatoid arthritis. Patient states that for the past 1-1/2 weeks she has had chest pain at the left breast area does not radiate to the back. No pain with deep breath or movement. She has not had a cough or sputum production. She does have sinus drainage. She denies having any rash on her back or chest. She states she has been working 2 jobs and working 16 hours a day and for one of her jobs she is hunched over in her back is sore. Patient also relates that 4 times recently she has had pain under her left ribs laterally that is a stabbing type pain. She is not experiencing this type of pain today. Patient is not up-to-date on her mammogram. Patient came into [facility] emergency center for evaluation and subsequently placed in the observation unit. Echocardiogram reveals EF 60- 65%, LV wall motion hypokinetic, trace to mild aortic regurgitation, mild mitral regurgitation, mild tricuspid regurgitation, aortic root is dilated measuring 3.8 cm. Chest x-ray shows no acute cardiopulmonary disease. Right midlung nodules. Rib x-rays no acute displaced nor healed left rib fracture deformity. Mild left acromioclavicular arthropathy. Troponin negative on 2 draws. Patient underwent a stress echocardiogram which is negative patient has been cleared for discharge by cardiology. Atorvastatin has been changed to Crestor and patient to follow-up with Dr. Coulter as an outpatient. Patient will be discharged home today in stable condition. Review of Systems Constitutional: Denies chills, Denies fatigue, Denies fever, Denies lethargy, Denies malaise, Denies poor appetite, Denies weight loss Eyes: denies blurred vision, denies pain Ears, nose, mouth and throat: Denies headache, Denies sore throat Cardiovascular: Reports chest pain, Denies lightheadedness, Denies shortness of breath, Denies syncope Respiratory: Denies cough, Denies cough with sputum, Denies dyspnea, Denies excessive sputum, Denies hemoptysis, Denies home oxygen, Denies respiratory infections, Denies wheezing Gastrointestinal: Denies abdominal pain, Denies diarrhea, Denies loss of appetite, Denies nausea, Denies vomiting Genitourinary: Denies dysuria, Denies hematuria, Denies urgency, Denies urinary frequency Musculoskeletal: Denies frequent falls, Denies gait dysfunction, Denies muscle weakness, Denies myalgias Integumentary: Denies pruritus, Denies rash, Denies wounds Neurological: Denies change in mentation, Denies change in speech, Denies gait dysfunction, Denies numbness, Denies weakness Psychiatric: Denies anxiety, Denies depression Endocrine: Denies fatigue, Denies weight change Past Medical History Past Medical History: Coronary Artery Disease (CAD), Chest Pain / Angina, Hyperlipidemia, Hypertension, Rheumatoid Arthritis (RA), Thyroid Disorder Additional Past Medical History / Comment(s): Pt states she has had 3 spots on her lungs being monitored by cat scan, past multiple ovarian cysts with surgery and pre cancerous cells in uterus with surgery, multiple bilateral ear infections as a child. History of Any Multi-Drug Resistant Organisms: None Reported Past Surgical History: No Surgical Hx Reported Additional Past Surgical History / Comment(s): Multiple abdominal laparoscopies d/t ovarian benign cysts, pt states she had precancerous spots lasered off her uterus at [facility] years ago, colonoscopy, bilateral ear pinning. Past Anesthesia/Blood Transfusion Reactions: Motion Sickness, Postoperative Naus ea & Vomiting (PONV) Smoking Status: Former smoker Additional Past Alcohol Use History / Comment(s): Patient quit smoking in 2016. - Past Family History Father Family Medical History: Coronary Artery Disease (CAD), Myocardial Infarction (ND) Additional Family Medical History / Comment(s): Pt states her father has been in and out of her life. She does not recall how old father was with his ND Mother Family Medical History: Coronary Artery Disease (CAD), Myocardial Infarction (ND) Additional Family Medical History / Comment(s): Mother had CABG-3 vessel but pt cannot recall at what age mother had a ND or CABG Brother(s) Family Medical History: Myocardial Infarction (ND) Additional Family Medical History / Comment(s): Pt states her brother has been told he has a heart of a 90 yr old. He has had multiple MIs and pt does not recall at what age brother was with first ND, he had a TIA Sister(s) Family Medical History: Coronary Artery Disease (CAD) Additional Family Medical History / Comment(s): Sister had PCI with stenting. Medications and Allergies Home Medications Medication Instructions Recorded Confirmed Type Aspirin EC [Ecotrin Low Dose] 81 mg PO DAILY 03/04/16 02/22/19 History Levothyroxine Sodium [Synthroid] 88 mcg PO DAILY@0300 02/09/18 02/22/19 History Isosorbide Mononitrate ER [Imdur] 30 mg PO DAILY #90 tab.er.24h 03/31/18 02/22/19 Rx Metoprolol Tartrate [Lopressor] 25 mg PO BID #180 tab 03/31/18 02/22/19 Rx Nitroglycerin Sl Tabs [Nitrostat] 0.4 mg SUBLINGUAL Q5M PRN #1 bottle 03/31/18 02/22/19 Rx Hydroxychloroquine Sulfate 200 mg PO BID 02/22/19 02/22/19 History [Plaquenil] Rosuvastatin Calcium [Crestor] 40 mg PO DAILY #90 tab 02/22/19 Rx Allergies Allergy/AdvReac Type Severity Reaction Status Date / Time clarithromycin [From Biaxin] AdvReac Nausea Verified 02/22/19 07:51 Physical Exam Vitals: Vital Signs Temp Pulse Pulse Pulse Resp BP BP 02/22/19 09:30 97.5 F L 59 L 16 139/83 02/22/19 09:00 61 18 136/83 02/22/19 08:00 55 L 16 144/86 02/22/19 07:48 60 18 144/86 02/22/19 07:24 63 17 02/22/19 07:15 110 H 02/22/19 06:53 97.6 F 130 H 20 167/92 Pulse Ox 02/22/19 09:30 98 02/22/19 09:00 100 02/22/19 08:00 100 02/22/19 07:48 98 02/22/19 07:24 100 02/22/19 07:15 02/22/19 06:53 98 Intake and Output 02/21/19 02/22/19 02/22/19 22:59 06:59 14:59 Other: Weight 71.668 kg 71.668 kg Gen: This is a 58-year-old female. Patient's resting in bed appears to be comfortable and in no acute distress. HEENT: Head is atraumatic, normocephalic. Pupils equal, round. Sclerae is anicteric. NECK: Supple. No JVD. No lymphadenopathy. No thyromegaly. LUNGS: Clear to auscultation. No wheezes or rhonchi. No intercostal retractions. HEART: Regular rate and rhythm. No murmur. No chest wall tenderness. ABDOMEN: Soft. Bowel sounds are present. No masses. No tenderness. EXTREMITIES: No pedal edema. No calf tenderness. NEUROLOGICAL: Patient is awake, alert and oriented x3. Cranial nerves 2 through 12 are grossly intact. Results CBC & Chem 7: 02/22/19 07:22 02/22/19 07:22 Labs: Abnormal Lab Results - Last 24 Hours (Table) 02/22/19 02/22/19 Range/Units 07:22 07:22 WBC 2.9 L (3.8-10.6) k/uL Lymphocytes # 0.9 L (1.0-4.8) k/uL Chloride 109 H (98-107) mmol/L Glucose 111 H (74-99) mg/dL Thrombosis Risk Factor Assmnt - Choose All That Apply Any of the Below Risk Factors Present?: Yes Each Factor Represents 1 point: Age 41-60 years Other Risk Factors: No Other congenital or acquired thrombophilia - If yes, enter type in comment: No Thrombosis Risk Factor Assessment Total Risk Factor Score: 1 Thrombosis Risk Factor Assessment Level: Low Risk Assessment and Plan Plan: 1. Chest pain, possibly musculoskeletal. Stress test negative. Patient have outpatient follow-up. 2. History of coronary artery disease with known chronic stenosis of the right coronary artery with collateral circulation.. 3. Hypertension. 4. Rheumatoid arthritis. 5. Hyperlipidemia. 6. Hypothyroidism. Patient was on the observation unit Discharge plan: home Discharge Medication List Aspirin EC [Ecotrin Low Dose] 81 mg PO DAILY 03/04/16 [History] Levothyroxine Sodium [Synthroid] 88 mcg PO DAILY@0300 02/09/18 [History] Isosorbide Mononitrate ER [Imdur] 30 mg PO DAILY #90 tab.er.24h 03/31/18 [Rx] Metoprolol Tartrate [Lopressor] 25 mg PO BID #180 tab 03/31/18 [Rx] Nitroglycerin Sl Tabs [Nitrostat] 0.4 mg SUBLINGUAL Q5M PRN #1 bottle 03/31/18 [Rx] Hydroxychloroquine Sulfate [Plaquenil] 200 mg PO BID 02/22/19 [History] Rosuvastatin Calcium [Crestor] 40 mg PO DAILY #90 tab 02/22/19 [Rx] Impression and plan of care have been directed as dictated by the signing physician. Janiya Ty nurse practitioner acting as scribe for signing physician.
[2019-02-22] MEDS ORDERED: IBUPROFEN 600 MG TAB PO STA (14:19)
--- NOTE | 2019-02-22 15:06 | CONS ---
CONSULTATION Mrs. Laguna is a 58-year-old female who is admitted to the emergency room with a complaint of chest pain. This patient has been having chest pain on and off for the last few days. The pain is in the left precordial area. It is a sharp pain like discomfort which comes and goes. Lasts only for a few seconds. She was not sure whether this is due to her anxiety or her angina. The patient took Xanax as directed by Dr. Garcia in the past which she was able to elevate some symptoms, but because of the recurrence pain patient came back to the emergency room. This patient was admitted in the hospital about a year ago with a chest pain. She had a stress test, which at that time, the EKG did show some ST-segment changes suggestive of ischemia. The patient underwent cardiac catheterization which showed total occlusion of the right coronary artery and left main coronary artery had a 30% to 40% stenosis and patient was advised medical treatment. Patient is of regularly followed by Dr. Coulter in the office. HOME MEDICATIONS: Include Lipitor 80 mg daily, Imdur 30 mg daily, Lopressor, aspirin once a day. REVIEW OF THE SYSTEM: Otherwise unremarkable. PAST MEDICAL HISTORY: Includes multiple abdominal laparoscopies, ovarian benign cysts, history of some spot in her uterus and history of colonoscopy. PHYSICAL EXAMINATION: At present reveals a 58-year-old female who does not appear to be any acute distress. The blood pressure is 144/86 mmHg/ HEENT: Examination is negative. Neck is supple. There is no increase in jugular venous pressure. Both the carotid pulses are felt. There is no bruit. Chest is symmetrical. Heart, first and second heart sounds are normal. Lungs are clinically clear to auscultation and percussion. Abdomen is negative. EKG shows normal sinus rhythm with nonspecific ST changes. First troponin is normal. FINAL IMPRESSION: This patient's chest pains are atypical chest pains. Patient has a totally occluded right coronary artery with minimal disease in the left main coronary artery. The patient's cholesterol is significantly elevated in spite of patient being on atorvastatin.. RECOMMENDATIONS: If the second troponin is normal, we will evaluate the patient with a stress test. If the stress test is normal, patient can be discharged home. We will recommend to change Lipitor to Crestor 40 mg daily and follow her lipid profile. If her cholesterol remains elevated, she should be considered for treatment with Repatha. MMODL / IJN: [id number] /
[2019-02-22] MEDS ORDERED: ATORVASTATIN 40 MG TAB PO SCH (21:00)
[2019-02-22] MEDS ORDERED: ATORVASTATIN 80 MG TAB PO SCH (21:00)
[2019-02-22] MEDS ORDERED: HYDROXYCHLOROQUINE SULFATE 200 MG TAB PO SCH (21:00)
[2019-02-22] MEDS ORDERED: METOPROLOL TARTRATE 25 MG TAB PO SCH (21:00)
[2019-02-23] MEDS ORDERED: LEVOTHYROXINE 88 MCG TAB PO SCH (03:00)
[2019-02-23] MEDS ORDERED: ISOSORBIDE MONONITRATE ER 30 MG TAB.ER.24H PO SCH (09:00)
[2019-02-23] MEDS ORDERED: ASPIRIN 81 MG PO SCH (09:00)
[2019-02-23] MEDS ORDERED: ASPIRIN 325 MG TAB PO SCH (09:00)
== END 2019-02-22 15:17 | disposition home or self-care (01) ==
LOC: EC 06:50 → 1SOBS 08:53
PROVIDERS: ADMIT Family Medicine; ATTEND Family Medicine
DX: R07.89 Other chest pain (principal); F41.9 Anxiety disorder, unspecified; E03.9 Hypothyroidism, unspecified; E78.5 Hyperlipidemia, unspecified; I10 Essential (primary) hypertension; I25.10 Atherosclerotic heart disease of native coronary artery without angina pectoris; I25.82 Chronic total occlusion of coronary artery; M06.9 Rheumatoid arthritis, unspecified; Z79.82 Long term (current) use of aspirin; Z79.890 Hormone replacement therapy; Z79.899 Other long term (current) drug therapy; Z82.49 Family history of ischemic heart disease and other diseases of the circulatory system; Z87.891 Personal history of nicotine dependence; Z88.1 Allergy status to other antibiotic agents
CPT/HCPCS: 96374; 99285; 36415; 93005; 93351; 80053; 83690; 83735; 84484; 85025; 85610; 85730; 71100; 71046; G0378; J1644 ×2; 93306

== ENCOUNTER → 2019-03-09 | Outpatient (CLI) | payer BC ==
--- NOTE | 2019-03-09 15:21 | CT ---
EXAMINATION TYPE: CT chest abdomen w con DATE OF EXAM: 03/09/2019 COMPARISON: 01/26/17 CT chest HISTORY: Right sided chest pain and abdomen pain. CT DLP: 1317 mGycm CONTRAST: CT scan of the chest, abdomen is performed with Oral Contrast and with IV Contrast, patient injected with 100 mL of Isovue 300. CT Chest: LUNGS: Scattered predominantly calcified pulmonary nodules are noted bilaterally unchanged from prior examination dating back to 2017 compatible with benign process. No new nodules are identified. There is no evidence for pulmonary mass. No infiltrate or pleural effusion seen. MEDIASTINUM: Thoracic aorta is of normal caliber. The heart is not enlarged. No evidence for media stinal mass or adenopathy. HILAR STRUCTURES: No evidence for mass. No hilar adenopathy is appreciated. OTHER: No significant abnormality. CONTRAST CT ABDOMEN AND PELVIS FINDINGS: LIVER/GB: No calcified gallstones. Stable hypoattenuating lesion lateral segment left hepatic lobe measuring approximately 2.2 x 2.1 cm. Similar hypoattenuating lesion inferior tip right hepatic lobe measuring 11 mm. No additional lesions identified. Consider MRI correlation. Biliary tree is of madi l caliber. PANCREAS: No inflammation. No distinct mass. SPLEEN: No splenic enlargement. No lesion seen. Splenic granulomas identified. ADRENALS: No nodule. No thickening. KIDNEYS/BLADDER: No hydronephrosis. No nephrolithiasis. No disctinct renal mass. BOWEL: Normal appendix. Normal bowel caliber. No inflammation. LYMPH NODES: No greater than 1cm abdominal or pelvic lymph nodes are appreciated. AORTA: No significant abnormality. OSSEOUS STRUCTURES: No significant abnormality is seen. OTHER: No significant additional abnormality is seen. IMPRESSION: 1. Stable granulomatous disease with calcified pulmonary nodules and splenic granuloma. 2. Nonspecific lesions of the liver. Consider MRI correlation.
== END | disposition home or self-care (01) ==
LOC: RADCTMAIN 13:25
PROVIDERS: ATTEND Family Medicine
DX: K76.9 Liver disease, unspecified (principal); D73.89 Other diseases of spleen; D71 Functional disorders of polymorphonuclear neutrophils; R91.8 Other nonspecific abnormal finding of lung field
CPT/HCPCS: 71260; 74160; Q9967 ×2

== ENCOUNTER → 2019-04-17 | Outpatient (CLI) | payer BC ==
--- NOTE | 2019-04-17 09:26 | NM ---
EXAMINATION TYPE: NM hepatobiliary w EF DATE OF EXAM: 04/17/2019 COMPARISON: CT chest and abdomen March 09, 2019. HISTORY: Right upper quadrant abdominal pain. TECHNIQUE: After the intravenous administration of 4.49 mCi Tc 99m Mebrofenin hepatobiliary scintigra phy is performed. Immediate images post injection. FINDINGS: There is satisfactory initial accumulation of tracer by the liver. The gallbladder is visualized wit hin 40 minutes. The small bowel activity is noted within 40 minutes. At one hour 8 ounces of oral e nsure plus is given to mimic CCK and gallbladder ejection fraction is calculated at 95 %, not deviate d from the normal range. Therefore there is no scintigraphic evidence of cystic or common bile duct obstruction to suggest acute cholecystitis . IMPRESSION: Ejection fraction 95%, some consider this abnormal or a hyperkinetic response.
== END | disposition home or self-care (01) ==
LOC: RADNMMAIN 06:35
PROVIDERS: ATTEND Family Medicine
DX: R10.10 Upper abdominal pain, unspecified (principal)
CPT/HCPCS: 78226; A9537

== ENCOUNTER 2020-07-25 13:59 | Emergency (ER) | payer BC, OTHER ==
[2020-07-25 14:07] VITALS: BP 147/84; PULSE 78; RESP 18; TEMP 97.4
[2020-07-25] MEDS ORDERED: KETOROLAC 15 MG/ML 1 ML VIAL IM STA (14:26)
--- NOTE | 2020-07-25 14:30 | ED ---
General Adult HPI - General Chief complaint: Dizziness Stated complaint: Lightheaded/Dizziness Time Seen by Provider: 07/25/20 14:12 Source: patient Mode of arrival: ambulatory Limitations: no limitations - History of Present Illness Initial comments: 59-year-old female presents to emergency department with a chief complaint of right ankle injury. Patient states about 8 hours ago she suffered an eversion injury to her right ankle she was bending over while at work. Patient denies any head injuries with the fall. States she continue working until her shift was over and went home. States the pain continued to increase in severity so she decided to file an accident report with her job who then since her to [place]. Patient reports while she was there, she began to feel lightheaded but not dizzy. States her symptoms were secondary to not eating anything all day and the severity of the pain. She states the provider who evaluated her advised her to come to the emergency department even though she only had a brief episode of lightheadedness. She does have history of CAD, hypertension and dyslipidemia that is well controlled. She has seen Dr. Ness 2 weeks ago for maintenance visit. She reports the pain in her ankle is exacerbated with weightbearing and alleviated at rest. She denies any paresthesias or weakness. She denies any chest pain, shortness of breath, lightheadedness, dizziness, nausea, vomiting, one-sided weakness or paresthesias. - Related Data Home Medications Medication Instructions Recorded Confirmed Aspirin EC [Ecotrin Low Dose] 81 mg PO DAILY 03/04/16 02/22/19 Levothyroxine Sodium [Synthroid] 88 mcg PO DAILY@0300 02/09/18 02/22/19 Hydroxychloroquine Sulfate 200 mg PO BID 02/22/19 02/22/19 [Plaquenil] Previous Rx's Medication Instructions Recorded Isosorbide Mononitrate ER [Imdur] 30 mg PO DAILY #90 tab.er.24h 03/31/18 Metoprolol Tartrate [Lopressor] 25 mg PO BID #180 tab 03/31/18 Nitroglycerin Sl Tabs [Nitrostat] 0.4 mg SUBLINGUAL Q5M PRN #1 bottle 03/31/18 Ibuprofen 600 mg PO TID #30 tablet 02/22/19 Rosuvastatin Calcium [Crestor] 40 mg PO DAILY #90 tab 02/22/19 Allergies Allergy/AdvReac Type Severity Reaction Status Date / Time clarithromycin [From Biaxin] AdvReac Nausea Verified 07/25/20 14:07 Review of Systems ROS Statement: Those systems with pertinent positive or pertinent negative responses have been documented in the HPI. ROS Other: All systems not noted in ROS Statement are negative. Past Medical History Past Medical History: Coronary Artery Disease (CAD), Chest Pain / Angina, Hyperlipidemia, Hypertension, Rheumatoid Arthritis (RA), Thyroid Disorder Additional Past Medical History / Comment(s): Pt states she has had 3 spots on her lungs being monitored by cat scan, past multiple ovarian cysts with surgery and pre cancerous cells in uterus with surgery, multiple bilateral ear infections as a child. History of Any Multi-Drug Resistant Organisms: None Reported Past Surgical History: No Surgical Hx Reported Additional Past Surgical History / Comment(s): Multiple abdominal laparoscopies d/t ovarian benign cysts, pt states she had precancerous spots lasered off her uterus at [facility] years ago, colonoscopy, bilateral ear pinning. Past Anesthesia/Blood Transfusion Reactions: Motion Sickness, Postoperative Nausea & Vomiting (PONV) Past Psychological History: Anxiety Smoking Status: Never smoker Past Alcohol Use History: None Reported Past Drug Use History: None Reported - Past Family History Father Family Medical History: Coronary Artery Disease (CAD), Myocardial Infarction (UT) Additional Family Medical History / Comment(s): Pt states her father has been in and out of her life. She does not recall how old father was with his UT Mother Family Medical History: Coronary Artery Disease (CAD), Myocardial Infarction (UT) Additional Family Medical History / Comment(s): Mother had CABG-3 vessel but pt cannot recall at what age mother had a UT or CABG Brother(s) Family Medical History: Myocardial Infarction (UT) Additional Family Medical History / Comment(s): Pt states her brother has been told he has a heart of a 90 yr old. He has had multiple MIs and pt does not recall at what age brother was with first UT, he had a TIA Sister(s) Family Medical History: Coronary Artery Disease (CAD) Additional Family Medical History / Comment(s): Sister had PCI with stenting. General Exam Limitations: no limitations General appearance: alert, in no apparent distress Head exam: Present: atraumatic, normocephalic, normal inspection Eye exam: Present: normal appearance, PERRL, EOMI Pupils: Present: normal accommodation ENT exam: Present: normal exam, normal oropharynx, mucous membranes moist Neck exam: Present: normal inspection, full ROM. Absent: tenderness Respiratory exam: Present: normal lung sounds bilaterally. Absent: respiratory distress, rales, rhonchi, stridor, chest wall tenderness, accessory muscle use Cardiovascular Exam: Present: regular rate, normal rhythm, normal heart sounds. Absent: systolic murmur, diastolic murmur Extremities exam: Present: tenderness (Tenderness over the lateral malleolus. No midfoot or fifth metatarsal tenderness.), normal capillary refill, other (Palpable DP and PT bilaterally. Sensation intact in the right lower extremity.). Absent: normal inspection (Localized edema over the right lateral malleolus. No ecchymotic or erythematous changes noted.), full ROM (Limited range of motion with inversion and eversion.), pedal edema, joint swelling, calf tenderness Back exam: Present: normal inspection, full ROM. Absent: tenderness, CVA tenderness (R), CVA tenderness (L) Neurological exam: Present: alert, oriented X3 Psychiatric exam: Present: normal affect, normal mood Skin exam: Present: warm, dry, intact, normal color Course Vital Signs 07/25/20 14:01 Temperature 97.4 F L Pulse Rate 78 Respiratory 18 Rate Blood Pressure 147/84 O2 Sat by Pulse 100 Oximetry EKG Findings - EKG Comments: EKG Findings:: Sinus rhythm with no acute ischemic changes. Ventricular rate 72, P1 118, QRS 86, QTC 470. Procedures - Orthopedic Splinting/Casting Injury #1 Side: right Lower Extremity Injury Location: ankle Lower Extremity Immobilizer: stirrup splint Medical Decision Making - Medical Decision Making 59-year-old female presents to emergency department with a chief complaint of right ankle injury. On physical examination, patient is neurovascularly intact. However, she does have swelling and tenderness over the lateral malleolus of the right ankle. X-ray shows no acute fracture or dislocation but there is joint effusion. I will apply an ankle stirrup. Patient was given Toradol here for symptomatically relief with improvement in her symptoms. EKG showed no acute ischemic changes. Patient does not have any lightheadedness dizziness chest pain shortness of breath. Her symptoms that occurred while she was industrial [employer] for likely related secondary to not eating anything all day and uncontrolled pain. Patient was advised to rest, ice, compression and elevation. Advised to follow with archives specialist. Case discussed with Dr. Zhang. Disposition Clinical Impression: Right ankle sprain, Right ankle injury Disposition: HOME SELF-CARE Condition: Stable Instructions (If sedation given, give patient instructions): Ankle Stirrup Splint (ED), Ankle Sprain (DC) Additional Instructions: Follow-up with archives specialist. Return to emergency department if symptoms worsen. Is patient prescribed a controlled substance at d/c from ED?: No Referrals: Ritika Garcia MD [Primary Care Provider] - 1-2 days Wero Oliva MD [STAFF PHYSICIAN] - 1-2 days Time of Disposition: 15:06
--- NOTE | 2020-07-25 14:47 | XR ---
EXAMINATION TYPE: XR ankle complete RT DATE OF EXAM: 07/25/2020 CLINICAL HISTORY: Eversion injury, pain is worse on right side of ankle TECHNIQUE: Frontal, lateral and oblique images of the right ankle are obtained. COMPARISON: None. FINDINGS: There is no acute fracture/dislocation evident in the right ankle. There is an ankle joint effusion and soft tissue swelling about the right ankle, particularly laterally. Degenerative change s are present in the right ankle joint and midfoot. IMPRESSION: There is no acute fracture/dislocation evident in the right ankle. There is an ankle ronel nt effusion and soft tissue swelling about the right ankle, particularly laterally. Degenerative casiano ges are present in the right ankle joint and midfoot.
[2020-07-25] MEDS ORDERED: ACET/COD 300 MG/30 MG STARTER PACK 6 TAB BTL PO STA (15:13)
== END 2020-07-25 15:23 | disposition home or self-care (01) ==
LOC: EC 13:59
DX: S93.401A Sprain of unspecified ligament of right ankle, initial encounter (principal); E78.5 Hyperlipidemia, unspecified; I10 Essential (primary) hypertension; I25.10 Atherosclerotic heart disease of native coronary artery without angina pectoris; M06.9 Rheumatoid arthritis, unspecified; E07.9 Disorder of thyroid, unspecified; Z79.82 Long term (current) use of aspirin; W19.XXXA Unspecified fall, initial encounter
CPT/HCPCS: 93005; 73610; 99284; 96372; J1885

== ENCOUNTER → 2020-08-04 | Outpatient (CLI) | payer OTHER ==
--- NOTE | 2020-08-04 12:43 | XR ---
EXAMINATION TYPE: XR ankle complete RT DATE OF EXAM: 08/04/2020 CLINICAL HISTORY: Right ankle pain after twisting injury 9 days ago TECHNIQUE: Frontal, lateral and oblique images of the right ankle. COMPARISON: 07/25/2020 FINDINGS: No evidence of acute fracture or dislocation of the right ankle. There again is a joint effusion of t he right ankle with soft tissue swelling. Ankle mortise is intact. Degenerative changes of the right ankle is again visualized. IMPRESSION: 1. No evidence of acute fracture or dislocation of the right ankle. Ankle joint effusion and soft tis maxime swelling are again visualized.
== END | disposition home or self-care (01) ==
LOC: RADXRMAIN 09:24
PROVIDERS: ATTEND Family Medicine
DX: M79.89 Other specified soft tissue disorders (principal)

== ENCOUNTER → 2021-07-03 | Outpatient (CLI) | payer BC ==
--- NOTE | 2021-07-03 13:59 | CT ---
EXAMINATION TYPE: CT abdomen w con DATE OF EXAM: 07/03/2021 COMPARISON: 03/09/2019 HISTORY: GENERALIZED HYPERHIDROSIS CT DLP: 464.8 mGycm Automated exposure control for dose reduction was used. TECHNIQUE: Helical acquisition of images was performed from the lung bases through the top of iliac crest to include entire abdomen. CONTRAST: Performed with Oral Contrast and with IV Contrast, patient injected with 100 mL of Isovue 300. FINDINGS: There is a 7 mm calcified pulmonary nodule in the right lower lobe which was seen previously and is s table. There is a 2.4 cm hypodense mass in the lateral segment left lobe of liver which was seen previously and is stable. It most likely represents a benign angioma. The gallbladder is normal and there are no gallstones, wall thickening, distention or pericholecystic fluid. There is no biliary ductal dilatation. There is no focal mass or organomegaly within the pancreas, spleen or adrenal glands. The kidneys perfuse symmetrically and there is no solid renal mass or hydronephrosis. There is no ret roperitoneal adenopathy or hemorrhage in the caliber of the abdominal aorta is normal. The bowel loops are normal in caliber and there is no evidence of bowel obstruction or inflammation. There is no free intraperitoneal air or fluid. The visualized osseous structures are intact. IMPRESSION: 1. Probable benign stable hemangioma in the lateral segment of the left lobe of the liver. 2. Stable calcified granuloma in the right lung base. 3. No other significant abnormality seen within the abdomen
== END | disposition home or self-care (01) ==
LOC: RADCTMAIN 08:32
PROVIDERS: ATTEND Family Medicine
DX: J84.10 Pulmonary fibrosis, unspecified (principal); R93.2 Abnormal findings on diagnostic imaging of liver and biliary tract
CPT/HCPCS: 74160; Q9967

== ENCOUNTER 2023-02-12 17:28 | Emergency (ER) | payer BC ==
[2023-02-12] MEDS ORDERED: SODIUM CHLORIDE 0.9% 1,000 ML IV STA (17:54)
[2023-02-12] MEDS ORDERED: ONDANSETRON 4 MG/2 ML VIAL IVP STA (17:54)
[2023-02-12] MEDS ORDERED: MECLIZINE 12.5 MG TAB PO STA (17:54)
--- NOTE | 2023-02-12 17:56 | ED ---
Dizziness HPI - General Chief Complaint: Dizziness Stated Complaint: DIZZINESS Time Seen by Provider: 02/12/23 17:55 Source: patient Mode of arrival: ambulatory Limitations: no limitations - History of Present Illness Initial Comments: 62-year-old female presenting with chief complaint of dizziness. Patient states she had sudden onset dizziness around 2:00 this afternoon. She now admits to nausea and vomiting as well. Patient admits to sinus congestion and ear fullness. She has had vertigo in the past. She denies chest pain, difficulty breathing, abdominal pain, numbness, tingling, headache, neck pain, weakness, fever, chills, palpitations. - Related Data Home Medications Medication Instructions Recorded Confirmed Aspirin EC [Ecotrin Low Dose] 81 mg PO DAILY 03/04/16 02/22/19 Levothyroxine Sodium [Synthroid] 88 mcg PO DAILY@0300 02/09/18 02/22/19 Hydroxychloroquine Sulfate 200 mg PO BID 02/22/19 02/22/19 [Plaquenil] Previous Rx's Medication Instructions Recorded Isosorbide Mononitrate ER [Imdur] 30 mg PO DAILY #90 tab.er.24h 03/31/18 Metoprolol Tartrate [Lopressor] 25 mg PO BID #180 tab 03/31/18 Nitroglycerin Sl Tabs [Nitrostat] 0.4 mg SUBLINGUAL Q5M PRN #1 bottle 03/31/18 Ibuprofen 600 mg PO TID #30 tablet 02/22/19 Rosuvastatin Calcium [Crestor] 40 mg PO DAILY #90 tab 02/22/19 Meclizine [Antivert] 25 mg PO DAILY PRN #10 tab 02/13/23 Ondansetron Odt [Zofran Odt] 4 mg PO Q8HR PRN #20 tab 02/13/23 Allergies Allergy/AdvReac Type Severity Reaction Status Date / Time clarithromycin [From Biaxin] AdvReac Nausea Verified 02/12/23 21:20 Review of Systems ROS Statement: Those systems with pertinent positive or pertinent negative responses have been documented in the HPI. ROS Other: All systems not noted in ROS Statement are negative. Past Medical History Past Medical History: Coronary Artery Disease (CAD), Chest Pain / Angina, Hyperlipidemia, Hypertension, Rheumatoid Arthritis (RA), Thyroid Disorder Additional Past Medical History / Comment(s): Pt states she has had 3 spots on her lungs being monitored by cat scan, past multiple ovarian cysts with surgery and pre cancerous cells in uterus with surgery, multiple bilateral ear infections as a child. History of Any Multi-Drug Resistant Organisms: None Reported Past Surgical History: No Surgical Hx Reported Additional Past Surgical History / Comment(s): Multiple abdominal laparoscopies d/t ovarian benign cysts, pt states she had precancerous spots lasered off her uterus at [facility] years ago, colonoscopy, bilateral ear pinning. Past Anesthesia/Blood Transfusion Reactions: Motion Sickness, Postoperative Nausea & Vomiting (PONV) Past Psychological History: Anxiety Smoking Status: Never smoker Past Alcohol Use History: None Reported Past Drug Use History: None Reported - Past Family History Father Family Medical History: Coronary Artery Disease (CAD), Myocardial Infarction (IN) Additional Family Medical History / Comment(s): Pt states her father has been in and out of her life. She does not recall how old father was with his IN Mother Family Medical History: Coronary Artery Disease (CAD), Myocardial Infarction (IN) Additional Family Medical History / Comment(s): Mother had CABG-3 vessel but pt cannot recall at what age mother had a IN or CABG Brother(s) Family Medical History: Myocardial Infarction (IN) Additional Family Medical History / Comment(s): Pt states her brother has been told he has a heart of a 90 yr old. He has had multiple MIs and pt does not recall at what age brother was with first IN, he had a TIA Sister(s) Family Medical History: Coronary Artery Disease (CAD) Additional Family Medical History / Comment(s): Sister had PCI with stenting. General Exam - General Exam Comments Initial Comments: Visual Physical Exam Vital signs reviewed General: Patient is seated in wheelchair with her eyes closed and holding her face and her hands, she clearly appears nauseous and uncomfortable. Head: Normocephalic, atraumatic Eyes: PERRLA, EOMI ENT: Airway patent Chest: Nonlabored breathing Skin: No visual rash, normal skin tone Neuro: Alert and oriented 3 Musculoskeletal: No gross abnormalities Limitations: no limitations General appearance: alert, in distress (Patient appears very uncomfortable holding her face in her hands due to her dizziness and nausea) Head exam: Present: atraumatic, normocephalic Eye exam: Present: normal appearance. Absent: periorbital swelling Neck exam: Present: normal inspection Respiratory exam: Present: normal lung sounds bilaterally. Absent: respiratory distress, wheezes, rales, rhonchi, stridor Cardiovascular Exam: Present: regular rate, normal rhythm, normal heart sounds. Absent: systolic murmur, diastolic murmur, rubs, gallop, clicks Neurological exam: Present: alert, oriented X3 Expanded Patient oriented to: Present: person, place, time Speech: Present: fluid speech Cerebellar function: Finger to Nose: Normal Motor strength exam: RUE: 5, LUE: 5, RLE: 5, LLE: 5 Eye Response: (4) open spontaneously Motor Response: (6) obeys commands Verbal Response: (5) oriented [place] Total: 15 Psychiatric exam: Present: normal affect, normal mood Skin exam: Present: warm, dry Course Vital Signs 02/12/23 02/13/23 17:49 01:35 Temperature 99.2 F Pulse Rate 63 80 Respiratory 20 18 Rate Blood Pressure 128/84 112/66 O2 Sat by Pulse 98 95 Oximetry EKG Findings - EKG Comments: EKG Findings:: Sinus rhythm ventricular rate 71. DE interval 142. QRS 82. QT 414. QTc 437. No ST deviation. Medical Decision Making - Medical Decision Making Was pt. sent in by a medical professional or institution ([facility], CRITICAL CARE UNIT NURSE, urgent care, hospital, or correction...) When possible be specific @ -[No] Did you speak to anyone other than the patient for history (EMS, parent, family, police, friend...)? What history was obtained from this source @ -[No] Did you review nursing and triage notes (agree or disagree)? Why? @ -[I reviewed and agree with nursing and triage notes] Were old charts reviewed (outside hosp., previous admission, EMS record, old EKG, old radiological studies, urgent care reports/EKG's, correction records)? Report findings @ -[No old charts were reviewed] Differential Diagnosis (chest pain, altered mental status, abdominal pain women, abdominal pain men, vaginal bleeding, weakness, fever, dyspnea, syncope, headache, dizziness, GI bleed, back pain, seizure, CVA, palpatations, mental health, musculoskeletal)? @ -MDM Differential Dizziness: Benign paroxysmal positional Vertigo, Menieres disease, otitis media, acoustic neuroma, vertebrobasilar insufficiency, cerebellar stroke, encephalitis, hypovolemic, arrhythmia, coronary artery syndrome, anemia this is not meant to be an all-inclusive list EKG interpreted by me (3pts min.). @ -[As above] X-rays interpreted by me (1pt min.). @ -[None done] CT interpreted by me (1pt min.). @ -CT shows no acute intracranial process. There is an old blowout fracture seen on CT. U/S interpreted by me (1pt. min.). @ -[None done] What testing was considered but not performed or refused? (CT, X-rays, U/S, labs)? Why? @ -[None] What meds were considered but not given or refused? Why? @ -[None] Did you discuss the management of the patient with other professionals (professionals i.e. , PA, CRITICAL CARE UNIT NURSE, lab, RT, psych nurse, social economist, breaster, teacher, psychological operations officer, case management social worker)? Give summary @ -[No] Was smoking cessation discussed for >3mins.? @ -[No] Was critical care preformed (if so, how long)? @ -[No] Were there social determinants of health that impacted care today? How? (Homelessness, low income, unemployed, alcoholism, drug addiction, transportat ion, low edu. Level, literacy, decrease access to med. care, shelter, rehab)? @ -[No] Was there de-escalation of care discussed even if they declined (Discuss DNR or withdrawal of care, Hospice)? DNR status @ -[No] What co-morbidities impacted this encounter? (DM, HTN, Smoking, COPD, CAD, Cancer, CVA, ARF, Chemo, Hep., AIDS, mental health diagnosis, sleep apnea, morbid obesity)? @ -[None] Was patient admitted / discharged? Hospital course, mention meds given and route, prescriptions, significant lab abnormalities, going to OR and other pertinent info. @ -62-year-old female presenting with chief complaint of dizziness nausea and vomiting that started this afternoon. Patient does admit to sinus congestion and ear fullness bilaterally. History and physical exam were conducted. No focal neurological deficits are noted. No leukocytosis or anemia. Initial po tassium falsely elevated as it is hemolyzed at 5.7, repeat is 3.8. Remainder of lab work requires no further action. CT shows no acute intracranial process. Patient reports improvement in her symptoms after meclizine, Zofran, and Benadryl. Symptoms likely due to BPPV resulting from the patient's congestion and ear fullness. She is educated on today's findings and supportive management at home and is sent prescription for meclizine and zofran to her pharmacy. Follow-up with PCP. Report back to ER with any new or worsening symptoms. Discussed return parameters and answered all questions. Patient conveyed verbal understanding and agreed to the plan. I discussed this case in detail with my attending Dr. Ortiz Undiagnosed new problem with uncertain prognosis? @ -[No] Drug Therapy requiring intensive monitoring for toxicity (Heparin, Nitro, Insulin, Cardizem)? @ -[No] Were any procedures done? @ -[No] Diagnosis/symptom? @ -Vertigo Acute, or Chronic, or Acute on Chronic? @ -Acute Uncomplicated (without systemic symptoms) or Complicated (systemic symptoms)? @ -complicated Side effects of treatment? @ -[No] Exacerbation, Progression, or Severe Exacerbation? @ -[No] Poses a threat to life or bodily function? How? (Chest pain, [place], IN, pneumonia, PE, COPD, DKA, ARF, appy, cholecystitis, CVA, Diverticulitis, Homicidal, Suicidal, threat to staff... and all critical care pts) @ -low likelihood - Lab Data Result diagrams: 02/12/23 20:51 02/13/23 00:04 Lab Results 02/12/23 02/12/23 02/12/23 Range/Units 20:51 20:51 20:51 WBC 6.6 (3.8-10.6) k/uL RBC 4.34 (3.80-5.40) m/uL Hgb 13.4 (11.4-16.0) gm/dL Hct 39.4 (34.0-46.0) % MCV 90.8 (80.0-100.0) fL MCH 30.8 (25.0-35.0) pg MCHC 34.0 (31.0-37.0) g/dL RDW 12.9 (11.5-15.5) % Plt Count 175 (150-450) k/uL MPV 9.0 Neutrophils % 80 % Lymphocytes % 13 % Monocytes % 3 % Eosinophils % 2 % Basophils % 0 % Neutrophils # 5.2 (1.3-7.7) k/uL Lymphocytes # 0.9 L (1.0-4.8) k/uL Monocytes # 0.2 (0-1.0) k/uL Eosinophils # 0.1 (0-0.7) k/uL Basophils # 0.0 (0-0.2) k/uL PT 10.4 (10.0-12.5) sec INR 0.9 (<1.2) Sodium (137-145) mmol/L Potassium (3.5-5.1) mmol/L Chloride (98-107) mmol/L Carbon Dioxide (22-30) mmol/L Anion Gap mmol/L BUN (7-17) mg/dL Creatinine (0.52-1.04) mg/dL Est GFR (CKD-EPI)AfAm (>60 ml/min/1.73 sqM) Est GFR (CKD-EPI)NonAf (>60 ml/min/1.73 sqM) Glucose (74-99) mg/dL Plasma Lactic Acid Reinaldo (0.7-2.0) mmol/L Calcium (8.4-10.2) mg/dL Total Bilirubin (0.2-1.3) mg/dL AST (14-36) U/L ALT (4-34) U/L Alkaline Phosphatase (38-126) U/L Troponin I (0.000-0.034) ng/mL Total Protein (6.3-8.2) g/dL Albumin (3.5-5.0) g/dL Urine Color Colorless Urine Appearance Clear (Clear) Urine pH 6.0 (5.0-8.0) Ur Specific [place] 1.014 (1.001-1.035) Urine Protein Negative (Negative) Urine Glucose (UA) Negative (Negative) Urine Ketones Negative (Negative) Urine Blood Negative (Negative) Urine Nitrite Negative (Negative) Urine Bilirubin Negative (Negative) Urine Urobilinogen <2.0 (<2.0) mg/dL Ur Leukocyte Esterase Small H (Negative) Urine RBC 1 (0-5) /hpf Urine WBC 3 (0-5) /hpf Ur Squamous Epith Cells 1 (0-4) /hpf Urine Bacteria Rare H (None) /hpf Hyaline Casts 6 H (0-2) /lpf Urine Mucus Occasional H (None) /hpf Urine Yeast (Budding) Rare H (None) /hpf Urine Opiates Screen Not Detected (NotDetected) Ur Oxycodone Screen Not Detected (NotDetected) Urine Methadone Screen Not Detected (NotDetected) Ur Barbiturates Screen Not Detected (NotDetected) U Tricyclic Antidepress Not Detected (NotDetected) Ur Phencyclidine Scrn Not Detected (NotDetected) Ur Amphetamines Screen Not Detected (NotDetected) U Methamphetamines Scrn Not Detected (NotDetected) U Benzodiazepines Scrn Not Detected (NotDetected) Urine Cocaine Screen Not Detected (NotDetected) U Marijuana (THC) Screen Not Detected (NotDetected) Influenza Type A (PCR) (Not Detectd) Influenza Type B (PCR) (Not Detectd) RSV (PCR) (Not Detectd) SARS-CoV-2 (PCR) (Not Detectd) 02/12/23 02/12/23 02/12/23 Range/Units 20:51 20:51 20:51 WBC (3.8-10.6) k/uL RBC (3.80-5.40) m/uL Hgb (11.4-16.0) gm/dL Hct (34.0-46.0) % MCV (80.0-100.0) fL MCH (25.0-35.0) pg MCHC (31.0-37.0) g/dL RDW (11.5-15.5) % Plt Count (150-450) k/uL MPV Neutrophils % % Lymphocytes % % Monocytes % % Eosinophils % % Basophils % % Neutrophils # (1.3-7.7) k/uL Lymphocytes # (1.0-4.8) k/uL Monocytes # (0-1.0) k/uL Eosinophils # (0-0.7) k/uL Basophils # (0-0.2) k/uL PT (10.0-12.5) sec INR (<1.2) Sodium 138 (137-145) mmol/L Potassium 5.7 H (3.5-5.1) mmol/L Chloride 108 H (98-107) mmol/L Carbon Dioxide 19 L (22-30) mmol/L Anion Gap 11 mmol/L BUN 17 (7-17) mg/dL Creatinine 0.67 (0.52-1.04) mg/dL Est GFR (CKD-EPI)AfAm >90 (>60 ml/min/1.73 sqM) Est GFR (CKD-EPI)NonAf >90 (>60 ml/min/1.73 sqM) Glucose 108 H (74-99) mg/dL Plasma Lactic Acid Reinaldo 1.0 (0.7-2.0) mmol/L Calcium 8.7 (8.4-10.2) mg/dL Total Bilirubin 1.1 (0.2-1.3) mg/dL AST 48 H (14-36) U/L ALT 25 (4-34) U/L Alkaline Phosphatase 56 (38-126) U/L Troponin I 0.020 (0.000-0.034) ng/mL Total Protein 7.5 (6.3-8.2) g/dL Albumin 4.4 (3.5-5.0) g/dL Urine Color Urine Appearance (Clear) Urine pH (5.0-8.0) Ur Specific [place] (1.001-1.035) Urine Protein (Negative) Urine Glucose (UA) (Negative) Urine Ketones (Negative) Urine Blood (Negative) Urine Nitrite (Negative) Urine Bilirubin (Negative) Urine Urobilinogen (<2.0) mg/dL Ur Leukocyte Esterase (Negative) Urine RBC (0-5) /hpf Urine WBC (0-5) /hpf Ur Squamous Epith Cells (0-4) /hpf Urine Bacteria (None) /hpf Hyaline Casts (0-2) /lpf Urine Mucus (None) /hpf Urine Yeast (Budding) (None) /hpf Urine Opiates Screen (NotDetected) Ur Oxycodone Screen (NotDetected) Urine Methadone Screen (NotDetected) Ur Barbiturates Screen (NotDetected) U Tricyclic Antidepress (NotDetected) Ur Phencyclidine Scrn (NotDetected) Ur Amphetamines Screen (NotDetected) U Methamphetamines Scrn (NotDetected) U Benzodiazepines Scrn (NotDetected) Urine Cocaine Screen (NotDetected) U Marijuana (THC) Screen (NotDetected) Influenza Type A (PCR) (Not Detectd) Influenza Type B (PCR) (Not Detectd) RSV (PCR) (Not Detectd) SARS-CoV-2 (PCR) (Not Detectd) 02/12/23 02/13/23 Range/Units 21:53 00:04 WBC (3.8-10.6) k/uL RBC (3.80-5.40) m/uL Hgb (11.4-16.0) gm/dL Hct (34.0-46.0) % MCV (80.0-100.0) fL MCH (25.0-35.0) pg MCHC (31.0-37.0) g/dL RDW (11.5-15.5) % Plt Count (150-450) k/uL MPV Neutrophils % % Lymphocytes % % Monocytes % % Eosinophils % % Basophils % % Neutrophils # (1.3-7.7) k/uL Lymphocytes # (1.0-4.8) k/uL Monocytes # (0-1.0) k/uL Eosinophils # (0-0.7) k/uL Basophils # (0-0.2) k/uL PT (10.0-12.5) sec INR (<1.2) Sodium (137-145) mmol/L Potassium 3.8 (3.5-5.1) mmol/L Chloride (98-107) mmol/L Carbon Dioxide (22-30) mmol/L Anion Gap mmol/L BUN (7-17) mg/dL Creatinine (0.52-1.04) mg/dL Est GFR (CKD-EPI)AfAm (>60 ml/min/1.73 sqM) Est GFR (CKD-EPI)NonAf (>60 ml/min/1.73 sqM) Glucose (74-99) mg/dL Plasma Lactic Acid Reinaldo (0.7-2.0) mmol/L Calcium (8.4-10.2) mg/dL Total Bilirubin (0.2-1.3) mg/dL AST (14-36) U/L ALT (4-34) U/L Alkaline Phosphatase (38-126) U/L Troponin I (0.000-0.034) ng/mL Total Protein (6.3-8.2) g/dL Albumin (3.5-5.0) g/dL Urine Color Urine Appearance (Clear) Urine pH (5.0-8.0) Ur Specific [place] (1.001-1.035) Urine Protein (Negative) Urine Glucose (UA) (Negative) Urine Ketones (Negative) Urine Blood (Negative) Urine Nitrite (Negative) Urine Bilirubin (Negative) Urine Urobilinogen (<2.0) mg/dL Ur Leukocyte Esterase (Negative) Urine RBC (0-5) /hpf Urine WBC (0-5) /hpf Ur Squamous Epith Cells (0-4) /hpf Urine Bacteria (None) /hpf Hyaline Casts (0-2) /lpf Urine Mucus (None) /hpf Urine Yeast (Budding) (None) /hpf Urine Opiates Screen (NotDetected) Ur Oxycodone Screen (NotDetected) Urine Methadone Screen (NotDetected) Ur Barbiturates Screen (NotDetected) U Tricyclic Antidepress (NotDetected) Ur Phencyclidine Scrn (NotDetected) Ur Amphetamines Screen (NotDetected) U Methamphetamines Scrn (NotDetected) U Benzodiazepines Scrn (NotDetected) Urine Cocaine Screen (NotDetected) U Marijuana (THC) Screen (NotDetected) Influenza Type A (PCR) Not Detected (Not Detectd) Influenza Type B (PCR) Not Detected (Not Detectd) RSV (PCR) Not Detected (Not Detectd) SARS-CoV-2 (PCR) Not Detected (Not Detectd) Disposition Clinical Impression: Vertigo Disposition: HOME SELF-CARE Condition: Good Instructions (If sedation given, give patient instructions): Dizziness (ED) Additional Instructions: Follow-up with PCP. Report back to ER with any new or worsening symptoms. Prescriptions: Meclizine [Antivert] 25 mg PO DAILY PRN #10 tab PRN Reason: Vertigo Ondansetron Odt [Zofran Odt] 4 mg PO Q8HR PRN #20 tab PRN Reason: Nausea Is patient prescribed a controlled substance at d/c from ED?: No Referrals: Ritika Garcia MD [Primary Care Provider] - 1-2 days Time of Disposition: 00:42
[2023-02-12 17:58] VITALS: TEMP 99.2
[2023-02-12] MEDS ORDERED: diphenhydrAMINE 50 MG/ML 1 ML VIAL IVP STA (21:10)
[2023-02-12 21:17] LABS: Basophils % (A) 0 %; Eosinophils # (A) 0.1 k/uL (0-0.7); Eosinophils % (A) 2 %; HCT 39.4 % (34.0-46.0); HGB 13.4 gm/dL (11.4-16.0); Lymphocytes # (A) 0.9 k/uL (1.0-4.8); Lymphocytes % (A) 13 %; MCH 30.8 pg (25.0-35.0); MCV 90.8 fL (80.0-100.0); Monocytes # (A) 0.2 k/uL (0-1.0); Monocytes % (A) 3 %; Neutrophils # (A) 5.2 k/uL (1.3-7.7); Neutrophils % (A) 80 %; Platelet Count 175 k/uL (150-450); RBC 4.34 m/uL (3.80-5.40); RDW 12.9 % (11.5-15.5); WBC 6.6 k/uL (3.8-10.6)
[2023-02-12 21:31] LABS: ALT 25 U/L (4-34); AST 48 U/L (14-36); African American GFR (CKD) >90 (>60 ml/min/1.73 sqM); Albumin 4.4 g/dL (3.5-5.0); Alkaline Phosphatase 56 U/L (38-126); Anion Gap 11 mmol/L; Blood Urea Nitrogen 17 mg/dL (7-17); Calcium 8.7 mg/dL (8.4-10.2); Carbon Dioxide 19 mmol/L (22-30); Chloride 108 mmol/L (98-107); Glucose 108 mg/dL (74-99); Non-African American GFR(CKD) >90 (>60 ml/min/1.73 sqM); Sodium 138 mmol/L (137-145); Total Bilirubin 1.1 mg/dL (0.2-1.3); Total Protein 7.5 g/dL (6.3-8.2)
[2023-02-12 21:35] LABS: INR 0.9 (<1.2); Prothrombin Time 10.4 sec (10.0-12.5)
--- NOTE | 2023-02-12 21:35 | CT ---
EXAMINATION TYPE: CT brain wo con DATE OF EXAM: 02/12/2023 COMPARISON: None HISTORY: 62-year-old female dizziness TECHNIQUE: Examination was done in axial plane without intravenous contrast. Coronal and sagittal r econstructions performed. CT DLP: 1154.6 mGycm Automated exposure control for dose reduction was used. FINDINGS: There is no evidence of acute intracranial hemorrhage, acute ischemic changes, mass, mass-effect, or extra-axial fluid collection. There is no effacement of cerebral sulci or basal subarachnoid cister ns. There is no hydrocephalus. There is no midline shift. Lewis-white matter distinction is preserv ed. There is a large blowout fracture along the medial left orbital wall. Paranasal sinuses and mastoid a ir cells are well pneumatized. IMPRESSION: No acute intracranial abnormality seen. Incidental old blowout fracture medial left orbital wall.
[2023-02-12 21:53] LABS: Appearance,Urine Clear (Clear); Bacteria,Urine Rare /hpf; Bilirubin,Urine Negative (Negative); Blood,Urine Negative (Negative); Budding Yeast,Urine Rare /hpf; Color,Urine Colorless; Glucose,Urine (UA) Negative (Negative); Hyaline Casts,Urine 6 /lpf (0-2); Ketones,Urine Negative (Negative); Leukocyte Esterase,Urine Small (Negative); Mucus,Urine Occasional /hpf; Nitrite,Urine Negative (Negative); Protein,Urine Negative (Negative); RBC,Urine 1 /hpf (0-5); Specific Gravity,Urine 1.014 (1.001-1.035); Squamous Epithelial Cell,Urine 1 /hpf (0-4); Urobilinogen,Urine <2.0 mg/dL (<2.0); WBC,Urine 3 /hpf (0-5)
[2023-02-12 22:03] LABS: Amphetamine Screen,Urine Not Detected (NotDetected); Barbiturate Screen,Urine Not Detected (NotDetected); Benzodiazepines Screen,Urine Not Detected (NotDetected); Cocaine Screen,Urine Not Detected (NotDetected); Methadone Screen, Urine Not Detected (NotDetected); Opiate Screen,Urine Not Detected (NotDetected); Oxycodone Screen, Urine Not Detected (NotDetected); Phencyclidine Screen,Urine Not Detected (NotDetected); Tricyclic Antidepressant,Urine Not Detected (NotDetected); Urn Cannabinoid Scrn Not Detected (NotDetected)
[2023-02-12 22:06] LABS: Potassium 5.7 mmol/L (3.5-5.1)
[2023-02-13 01:53] VITALS: BP 112/66; PULSE 80; RESP 18
== END 2023-02-13 01:49 | disposition home or self-care (01) ==
LOC: EC 17:28
DX: R42 Dizziness and giddiness (principal); I10 Essential (primary) hypertension; I25.10 Atherosclerotic heart disease of native coronary artery without angina pectoris; E07.9 Disorder of thyroid, unspecified; Z79.890 Hormone replacement therapy; Z79.82 Long term (current) use of aspirin; Z88.8 Allergy status to other drugs, medicaments and biological substances; Z86.59 Personal history of other mental and behavioral disorders; Z20.822 Contact with and (suspected) exposure to COVID-19
CPT/HCPCS: 36415; 93005; 80053; 83605; 84132; 84484; 85025; 85610; 81001; 80306; 87636; 70450; 99285; 96374; 96375; 96361; J1200; J2405

== ENCOUNTER 2023-06-21 09:57 | Day surgery (SDC) | payer BC ==
[2023-06-15 16:43] VITALS: BMI 29.0
[~2023-06-21 09:57] MED LIST: LIDOCAINE 1% (10MG/ML) FOR IV START INTRADERMA PRN
[2023-06-21] MEDS: LACTATED RINGERS 1,000 ML IV SCH (10:10)
[2023-06-21 10:19] VITALS: TEMP 97
[2023-06-21] MEDS ORDERED: PROPOFOL 10 MG/ML 20 ML VIAL IV ONE (11:12)
--- NOTE | 2023-06-21 11:28 | P.PCN ---
Date of Procedure: 06/21/23 Procedure(s) Performed: BRIEF HISTORY: Patient is a 62-year-old pleasant white female scheduled for an elective colonoscopy as a part of screening for colon cancer and family history of colon cancer. Mother was diagnosed with colon cancer at the age 65. PROCEDURE PERFORMED: Colonoscopy. PREOPERATIVE DIAGNOSIS: Screening for colon cancer/family history of colon cancer. IV sedation per Anesthesia. PROCEDURE: After informed consent was obtained, the patient, was brought into the endoscopy unit. IV sedation was administered by Anesthesia under continuous monitoring. Digital rectal examination was normal. Initially the Olympus CF-160 flexible video colonoscope was then inserted in the rectum, gradually advanced into the cecum without any difficulty. Careful examination was performed as the scope was gradually being withdrawn. Ileocecal valve and the appendiceal orifice were visualized and appeared normal. Prep was excellent. Mucosa of the cecum, ascending colon, transverse colon, descending colon, sigmoid colon, and rectum appeared normal. Scattered sigmoid diverticulosis. Retroflexion was performed in the rectum and no lesions were seen. The patient tolerated the procedure well. IMPRESSION: Normal-appearing colon from rectum to cecum send colorectal neoplasia. Scattered sigmoid diverticulosis. RECOMMENDATIONS: Findings of this examination were discussed with the patient as well as her family. She was advised to have repeat screening colonoscopy every 5 years because of the family history of colon cancer..
[2023-06-21 12:10] VITALS: BP 129/72; PULSE 78; RESP 16
== END 2023-06-21 12:07 | disposition home or self-care (01) ==
LOC: ORWHC2ENDO 09:57
PROVIDERS: ATTEND Internal Medicine Gastroenterology
DX: Z12.11 Encounter for screening for malignant neoplasm of colon (principal); K57.30 Diverticulosis of large intestine without perforation or abscess without bleeding; I25.10 Atherosclerotic heart disease of native coronary artery without angina pectoris; I10 Essential (primary) hypertension; E78.5 Hyperlipidemia, unspecified; E03.9 Hypothyroidism, unspecified; K21.9 Gastro-esophageal reflux disease without esophagitis; F41.9 Anxiety disorder, unspecified; Z80.0 Family history of malignant neoplasm of digestive organs; Z79.899 Other long term (current) drug therapy; Z79.890 Hormone replacement therapy; Z98.890 Other specified postprocedural states; Z79.01 Long term (current) use of anticoagulants
CPT/HCPCS: 45378; J2704